=== PATIENT | male | born 1930 | race Caucasian/White ===

== ENCOUNTER 2019-10-29 11:17 | Inpatient (IN) ==
--- NOTE | 2019-10-29 12:13 | Emergency Department Note ---
History of Present Illness General Chief Complaint: Neuro Symptoms/Deficit Stated Complaint: SPEECH POOR,CONFUSION Time Seen by Provider: 10/29/19 11:48 Source: patient and family Mode of arrival: ambulatory Limitations: no limitations History of Present Illness HPI Narrative: This is an 89-year-old male who presents to the ED with a chief complaint of having difficulty finding words. The patient was last known well at 6 PM yesterday. He has history of a CVA in 2010. The daughter reports that the son-in-law went to bathe him and found that he was using the wrong words and having some difficulty and frustration with finding the right words to say. The patient did not have any focal neurologic deficits. At times he would stutter and the right words did not come out. The patient denies any pain. He has no other complaints at this time. Home Medications Home Medications Medication Instructions Recorded Confirmed Type aspirin 81 mg PO QAM 09/21/19 10/29/19 History atorvastatin 80 mg PO QAM 09/21/19 10/29/19 History chlorthalidone 12.5 mg PO QAM PRN 09/21/19 10/29/19 History irbesartan 75 mg PO QAM 09/21/19 10/29/19 History isosorbide mononitrate 60 mg PO QAM 09/21/19 10/29/19 History magnesium 250 mg PO QAM 09/21/19 10/29/19 History metformin 500 mg PO UD 09/21/19 10/29/19 History metoprolol succinate [Toprol XL] 25 mg PO HS 09/21/19 10/29/19 History sitagliptin [Januvia] 100 mg PO QAM 09/21/19 10/29/19 History vit C,S-Ea-hwstw-lutein-zeaxan 1 tab PO BID 09/21/19 10/29/19 History [PreserVision AREDS-2] Allergies Allergy/AdvReac Type Severity Reaction Status Date / Time hydrochlorothiazide Allergy Redness of Unverified 10/29/19 11:56 Skin Past Med/Surg History Medical History No known problems Family History Other No known problems Social History Preferred Language: Congolese Feels Safe at Home: Yes Smoking Status: Never smoker Review of Systems A total of 10 systems reviewed and were otherwise negative Physical Exam Vital Signs: Vital Signs - 24 hr 10/29/19 11:25 10/29/19 11:37 10/29/19 11:40 Temperature 37.2 C Temperature Source Oral Pulse Rate 67 71 73 Pulse Rate from Sp O2 Sensor Respiratory Rate 20 19 17 Respiratory Effort / Characteristics Non-Labored Sponta neous Respiratory Patter n Regular Blood Pressure 166/67 H Blood Pressure Prema n 100 Pulse Oximetry 97 Oxygen Delivery Me thod Room Air Sepsis Recent Feve r Within 48 Hours No Sepsis New/Unexpla ined Change in Men lennox Status No Sepsis Action Take n by Nursing No Action Required 10/29/19 11:50 10/29/19 12:00 10/29/19 12:10 Temperature Temperature Source Pulse Rate 68 67 67 Pulse Rate from Sp O2 Sensor Respiratory Rate 19 17 20 Respiratory Effort / Characteristics Respiratory Patter n Blood Pressure Blood Pressure Prema n Pulse Oximetry Oxygen Delivery Me thod Sepsis Recent Feve r Within 48 Hours Sepsis New/Unexpla ined Change in Men lennox Status Sepsis Action Take n by Nursing 10/29/19 12:20 10/29/19 12:39 10/29/19 12:40 Temperature Temperature Source Pulse Rate 66 74 74 Pulse Rate from Sp O2 Sensor Respiratory Rate 20 18 16 Respiratory Effort / Characteristics Respiratory Patter n Blood Pressure Blood Pressure Prema n Pulse Oximetry Oxygen Delivery Me thod Sepsis Recent Feve r Within 48 Hours Sepsis New/Unexpla ined Change in Men lennox Status Sepsis Action Take n by Nursing 10/29/19 12:47 10/29/19 12:50 10/29/19 13:00 Temperature Temperature Source Pulse Rate 76 73 67 Pulse Rate from Sp O2 Sensor 75 73 67 Respiratory Rate 18 15 16 Respiratory Effort / Characteristics Respiratory Patter n Blood Pressure 191/85 H 175/64 H Blood Pressure Prema n 139 81 Pulse Oximetry 97 96 95 Oxygen Delivery Me thod Sepsis Recent Feve r Within 48 Hours Sepsis New/Unexpla ined Change in Men lennox Status Sepsis Action Take n by Nursing 10/29/19 13:01 10/29/19 13:10 10/29/19 13:20 Temperature Temperature Source Pulse Rate 67 62 67 Pulse Rate from Sp O2 Sensor 65 63 Respiratory Rate 13 14 28 H Respiratory Effort / Characteristics Respiratory Patter n Blood Pressure Blood Pressure Prema n Pulse Oximetry 96 97 Oxygen Delivery Me thod Sepsis Recent Feve r Within 48 Hours Sepsis New/Unexpla ined Change in Men lennox Status Sepsis Action Take n by Nursing 10/29/19 13:30 10/29/19 13:31 10/29/19 13:40 Temperature Temperature Source Pulse Rate 62 61 62 Pulse Rate from Sp O2 Sensor 63 61 61 Respiratory Rate 20 15 17 Respiratory Effort / Characteristics Respiratory Patter n Blood Pressure 178/78 H Blood Pressure Prema n 118 Pulse Oximetry 98 98 97 Oxygen Delivery Me thod Sepsis Recent Feve r Within 48 Hours Sepsis New/Unexpla ined Change in Men lennox Status Sepsis Action Take n by Nursing Physical Exam: VITAL SIGNS: were reviewed as above. GENERAL:Non-toxic in appearance. SKIN: Warm dry and pink. HEAD: Normocephalic and atraumatic. OROPHARYNX: Is clear and moist NECK: Supple without lymphadenopathy or meningismus. LUNGS: Are clear. HEART: Regular rate and rhythm. ABDOMEN: Soft and nontender. EXTREMITIES: Warm and well perfused. NEUROLOGICALLY: Awake alert and oriented without focal deficit. Cranial nerves 2-12 are intact. There is no pronator drift. Cerebellar testing is within normal limits. There is no nystagmus. There is no facial droop. Speech is clear but the patient does occasionally stutter and occasionally seems to use the wrong words in a sentence. MUSCULOSKELETAL: Good muscle tone. No evidence of trauma. Strength is symmetric. ALL NURSING NOTES WERE REVIEWED. Course Administered Medications Ioversol (Optiray 320 125ml) 120 ml IV ONCE PRN PRN Reason: Interaction Checking Stop: 11/02/19 12:29 Last Admin: 10/29/19 12:31 Dose: 120 ml Documented by: [id number] Medical Decision Making Differential Diagnosis Differential includes acute coronary syndrome, myocardial infarction, CVA, TIA, anemia, infection, pneumonia, UTI, pyelonephritis, poor nutrition, dehydration, electrolyte disturbance,hypoglycemia. Medical Records Attestation: I reviewed the patient's medical records. Home Medications Current Medication List: was personally reviewed by me Laboratory Data Attestation: I reviewed the patient's lab results. Result diagrams: 10/29/19 11:57 10/29/19 11:57 Lab Results 10/29/19 10/29/19 10/29/19 Range/Units 11:53 11:57 11:57 WBC 8.88 (4.8-10.8) K/uL RBC 4.89 (4.7-6.1) M/uL Hgb 14.3 (14.0-18.0) g/dL Hct 44.3 (42-52) % MCV 90.6 (80-100) fL MCH 29.2 (25-34) pg MCHC 32.3 (32-36) g/dL RDW Std Deviation 52.0 H (36.4-46.3) fL RDW Coeff of Jennifer 15.7 H (11.5-14.5) % Plt Count 119 L (130-400) K/uL MPV 13.0 H (7.4-10.4) fL Immature Gran % (Auto) 0.2 % Neut % (Auto) 78.3 % Lymph % (Auto) 10.9 % [place] % (Auto) 7.5 % Eos % (Auto) 2.9 % Baso % (Auto) 0.2 % Immature Gran # (Auto) 0.02 (0.00-0.02) K/uL Neut # (Auto) 6.94 H (1.4-6.5) K/uL Lymph # (Auto) 0.97 L (1.2-3.4) K/uL [place] # (Auto) 0.67 H (0.11-0.59) K/uL Eos # (Auto) 0.26 (0-0.5) K/uL Baso # (Auto) 0.02 (0-0.2) K/uL Platelet Estimate Decreased L (Normal) PT 11.2 (9.0-12.0) Seconds INR 1.1 (0.9-1.1) APTT 27.2 (21.0-31.0) Seconds PTT Ratio 1.0 Sodium (136-145) mmol/L Potassium (3.5-5.1) mmol/L Chloride (98-107) mmol/L Carbon Dioxide (21-32) mmol/L Anion Gap (3-11) BUN (7-18) mg/dl Creatinine (0.6-1.4) mg/dl Est Cr Clr Drug Dosing ml/min Est GFR ( Amer) Est GFR (Non-Af Amer) BUN/Creatinine Ratio (10-20) Glucose (70-99) mg/dl POC Glucose 266 H (70-99) mg/dl Calcium (8.5-10.1) mg/dl Magnesium (1.8-2.4) mg/dl Total Bilirubin (0.2-1) mg/dl AST (15-37) U/L ALT (12-78) U/L Alkaline Phosphatase (45-117) U/L Troponin I (0-0.045) ng/ml Total Protein (6.4-8.2) gm/dl Albumin (3.4-5.0) gm/dl Globulin (2.5-4.0) gm/dl Albumin/Globulin Ratio (0.9-2) /03/09 Range/Units 11:57 WBC (4.8-10.8) K/uL RBC (4.7-6.1) M/uL Hgb (14.0-18.0) g/dL Hct (42-52) % MCV (80-100) fL MCH (25-34) pg MCHC (32-36) g/dL RDW Std Deviation (36.4-46.3) fL RDW Coeff of Jennifer (11.5-14.5) % Plt Count (130-400) K/uL MPV (7.4-10.4) fL Immature Gran % (Auto) % Neut % (Auto) % Lymph % (Auto) % [place] % (Auto) % Eos % (Auto) % Baso % (Auto) % Immature Gran # (Auto) (0.00-0.02) K/uL Neut # (Auto) (1.4-6.5) K/uL Lymph # (Auto) (1.2-3.4) K/uL [place] # (Auto) (0.11-0.59) K/uL Eos # (Auto) (0-0.5) K/uL Baso # (Auto) (0-0.2) K/uL Platelet Estimate (Normal) PT (9.0-12.0) Seconds INR (0.9-1.1) APTT (21.0-31.0) Seconds PTT Ratio Sodium 137 (136-145) mmol/L Potassium 4.5 (3.5-5.1) mmol/L Chloride 102 (98-107) mmol/L Carbon Dioxide 28 (21-32) mmol/L Anion Gap 6.0 (3-11) BUN 26 H (7-18) mg/dl Creatinine 1.40 (0.6-1.4) mg/dl Est Cr Clr Drug Dosing 33.4 ml/min Est GFR ( Amer) 51.3 Est GFR (Non-Af Amer) 44.2 BUN/Creatinine Ratio 18.2 (10-20) Glucose 275 H (70-99) mg/dl POC Glucose (70-99) mg/dl Calcium 9.0 (8.5-10.1) mg/dl Magnesium 1.9 (1.8-2.4) mg/dl Total Bilirubin 0.4 (0.2-1) mg/dl AST 19 (15-37) U/L ALT 29 (12-78) U/L Alkaline Phosphatase 121 H (45-117) U/L Troponin I < 0.015 (0-0.045) ng/ml Total Protein 6.9 (6.4-8.2) gm/dl Albumin 3.2 L (3.4-5.0) gm/dl Globulin 3.7 (2.5-4.0) gm/dl Albumin/Globulin Ratio 0.9 (0.9-2) Imaging Data Radiologist's Impression: CT scan angiogram of the head iMPRESSION: 1. Severe focal narrowing within the distal bilateral vertebral arteries as described above. 2. Moderate calcified plaque within the bilateral carotid siphons resulting in mild diffuse narrowing. 3. Attenuated distal right INSURANCE VERIFIER corresponding to the old right INSURANCE VERIFIER territory infarct. 4. No areas of acute arterial occlusion. CT scan angiogram of the neck iMPRESSION: 1. 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 2. 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 3. Atherosclerotic vascular disease as above with additional areas of low to intermediate grade luminal narrowing. 4. 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 IMPRESSION: 1. No acute intracranial abnormality. 2. Remote right INSURANCE VERIFIER territorial infarct. Prescription Drug Monitoring [place] Drug Monitoring Program reviewed and no issues identified Blood Pressure Blood Pressure Findings: Elevated blood pressure Blood Pressure Disposition: Referred to patients primary care provider MDM Narrative This is an 89-year-old male who presents to the ED with a chief complaint of having difficulty finding words. The patient was last known well at 6 PM yesterday. He has history of a CVA in 2010. The daughter reports that the son-in-law went to bathe him and found that he was using the wrong words and having some difficulty and frustration with finding the right words to say. The patient did not have any focal neurologic deficits. At times he would stutter and the right words did not come out. The patient denies any pain. He has no other complaints at this time. The patient's vital signs reveal hypertension. His neurologic exam reveals no motor focal deficits. He does have occasional moments where he states the wrong word in a sentence or several words in a sentence causing the symptoms do not make much sense. Stroke alert was not called because his last known well was at 6 PM yesterday. It is noon. The CT scan of the brain reveals a remote right INSURANCE VERIFIER territory infarct. EKG showed a no rmal sinus rhythm at a rate of 72 with a right bundle branch block. CBC and chemistry panel was unremarkable. Glucose is 275. Troponin was negative. CT angiogram of the head neck was performed. Details are listed above. The patient takes baby aspirin daily. I will start the patient on Plavix in addition to the aspirin. I spoke with the hospitalist, who will see the patient for further inpatient evaluation and care. Impression & Plan Acute CVA (cerebrovascular accident) Discharge Plan Visit Data Chief Complaint: Neuro Symptoms/Deficit Stated Complaint: SPEECH POOR,CONFUSION ED Provider: Fletcher Santos Discharge Problem: Acute CVA (cerebrovascular accident) Patient Disposition: Being Evaluated by Hospitalist Condition: Good Forms Stand Alone Forms: My [facility], Virtual Emergency Department, Important Visit Information Prescriptions Prescriptions: No Action atorvastatin 80 mg Tablet 80 mg PO QAM RF: 0 chlorthalidone 25 mg Tablet 12.5 mg PO QAM PRN (Reason: swelling) RF: 0 aspirin 81 mg Tablet,Delayed Release (Dr/Ec) 81 mg PO QAM RF: 0 isosorbide mononitrate 60 mg Tablet Extended Release 24 Hr 60 mg PO QAM RF: 0 magnesium 250 mg Tablet 250 mg PO QAM RF: 0 metoprolol succinate [Toprol XL] 25 mg Tablet Extended Release 24 Hr 25 mg PO HS RF: 0 irbesartan 150 mg Tablet 75 mg PO QAM RF: 0 metformin 500 mg Tablet Extended Release 24 Hr 500 mg PO UD RF: 0 Januvia 100 mg Tablet 100 mg PO QAM RF: 0 PreserVision AREDS-2 [id number] aa-lypc-no-mg Capsule 1 tab PO BID RF: 0 Referrals Referrals: Alfa Carrillo MD [Primary Care Provider] -
[2019-10-29 12:20] LABS: INR 1.1 (0.9-1.1); Partial Thromboplastin Time 27.2 Seconds (21.0-31.0); Prothrombin Time 11.2 Seconds (9.0-12.0)
[2019-10-29 12:29] LABS: Alanine Aminotransferase 29 U/L (12-78); Albumin Level 3.2 gm/dl (3.4-5.0); Aspartate Aminotransferase 19 U/L (15-37); BUN Creatinine Ratio 18.2 (10-20); Blood Urea Nitrogen 26 mg/dl (7-18); Carbon Dioxide 28 mmol/L (21-32); Chloride 102 mmol/L (98-107); Creatinine Clr Calc Pharmacy 33.4 ml/min; Est GFR (African American) 51.3; Est GFR (Non-African American) 44.2; Glucose 275 mg/dl (70-99); Magnesium 1.9 mg/dl (1.8-2.4); Potassium 4.5 mmol/L (3.5-5.1); Sodium 137 mmol/L (136-145)
[2019-10-29] MEDS ORDERED: OPTIRAY 320 125ml IV PRN (12:30)
[2019-10-29 12:32] LABS: Hematocrit (blood only) 44.3 % (42-52); Hemoglobin 14.3 g/dL (14.0-18.0); Mean Corpuscular Hemoglobin 29.2 pg (25-34); Mean Corpuscular Hgb Conc 32.3 g/dL (32-36); Mean Corpuscular Volume 90.6 fL (80-100); RDW Coefficient of Variation 15.7 % (11.5-14.5); Red Blood Count 4.89 M/uL (4.7-6.1); White Blood Count 8.88 K/uL (4.8-10.8)
[2019-10-29 12:34] LABS: Albumin Globulin Ratio 0.9 (0.9-2); Alkaline Phosphatase 121 U/L (45-117); Bilirubin,Total 0.4 mg/dl (0.2-1); Globulin 3.7 gm/dl (2.5-4.0); Total Protein 6.9 gm/dl (6.4-8.2); Troponin I < 0.015 ng/ml (0-0.045)
--- NOTE | 2019-10-29 12:42 | CT Scan Report ---
CT head/brain wo con CLINICAL HISTORY: 89 years-old Male with Stroke evaluation . Acutely altered mental status with stro kelike symptoms TECHNIQUE: Multiple axial CT images of the head were obtained without contrast. A dose lowering tech nique was utilized adhering to the principles of ALARA. CT DOSE: 638.56 mGycm COMPARISON: Head CT 09/21/2019. FINDINGS: No acute intracranial hemorrhage, midline shift, intracranial mass, hydrocephalus, territorial ischem ia or abnormal extra-axial collection. Age-related involutional changes with ex vacuo ventriculomegal y. Patchy white matter hypodensities suggest chronic microvascular ischemic disease. Encephalomalacia from remote TRANSFER STATION ATTENDANT territorial infarct. Cerebral vascular calcifications. The calvarium is intact. Prior bilateral lens replacement. The paranasal sinuses, mastoid air cells, and middle ear cavities are clear. IMPRESSION: 1. No acute intracranial abnormality. 2. Remote right TRANSFER STATION ATTENDANT territorial infarct. ACT 112: Negative or not required by law. The above report was generated using voice recognition software. It may contain grammatical, syntax o r spelling errors. Electronically signed by: Casey Banuelos M.D. 10/29/2019 12:40 PM
--- NOTE | 2019-10-29 12:49 | CT Scan Report ---
HEAD CTA HISTORY: Altered mental status. Stroke evaluation TECHNIQUE: Multiaxial CT images of the head were performed following the intravenous administration o f contrast to evaluate the major cerebral vessels. Maximum intensity projection images were also obta ined. A dose lowering technique was utilized adhering to the principles of ALARA. COMPARISON: Head CT 09/21/2019. FINDINGS: Severe focal narrowing within the distal left vertebral artery best in image 42. This demon strates up to 75% narrowing. There is also severe focal narrowing at the distal right vertebral arter y of 75% near the confluence. Moderate calcified plaque seen within the bilateral carotid siphons. Th is results in mild diffuse narrowing of the bilateral carotid siphons. The bilateral ACAs, MCAs, and left SUPERINTENDENT SEED MILL show no significant stenosis, occlusion, or aneurysm. Attenuated distal right SUPERINTENDENT SEED MILL correspond ing to the old right SUPERINTENDENT SEED MILL territory infarct. The major dural venous sinuses appear patent. IMPRESSION: 1. Severe focal narrowing within the distal bilateral vertebral arteries as described above. 2. Moderate calcified plaque within the bilateral carotid siphons resulting in mild diffuse narrowing . 3. Attenuated distal right SUPERINTENDENT SEED MILL corresponding to the old right SUPERINTENDENT SEED MILL territory infarct. 4. No areas of acute arterial occlusion. ACT 112: Negative or not required by law. Electronically signed by: Jeramy Curran M.D. 10/29/2019 12:48 PM
[2019-10-29 12:53] LABS: Platelet Count 119 K/uL (130-400)
[2019-10-29 12:54] LABS: Basophils # (auto) 0.02 K/uL (0-0.2); Basophils % (auto) 0.2 %; Eosinophils # (auto) 0.26 K/uL (0-0.5); Eosinophils % (auto) 2.9 %; Immature Granulocytes # (auto) 0.02 K/uL (0.00-0.02); Immature Granulocytes % (auto) 0.2 %; Lymphocytes # (auto) 0.97 K/uL (1.2-3.4); Lymphocytes % (auto) 10.9 %; Monocytes # (auto) 0.67 K/uL (0.11-0.59); Monocytes % (auto) 7.5 %; Neutrophils # (auto) 6.94 K/uL (1.4-6.5); Neutrophils % (auto) 78.3 %; Platelet Estimate Decreased (Normal)
--- NOTE | 2019-10-29 12:57 | CT Scan Report ---
CT angio neck with con CLINICAL HISTORY: 89 years-old Male with Stroke evaluation. Acute strokelike symptoms with letharg y COMPARISON STUDY: CT and CTA head of same day TECHNIQUE: Following the IV administration of 120 of Optiray 320, CT angiogram of the neck was perfor med from the aortic arch to the skull base. Images are reviewed in the axial, sagittal, and coronal p lanes. 3-D MIPS images are created and assessed. IV contrast was administered without complication. A ll measurements were calculated based on NASCET criteria. A dose lowering technique was utilized adh ering to the principles of ALARA. FINDINGS: At least moderate mixed plaque the thoracic aortic arch and proximal great vessels. The innominate ar josé and imaged subclavian arteries appear patent. There is mild luminal narrowing of the proximal ri ght subclavian artery. Moderate mixed plaque of the bilateral common carotid arteries without high-gr aniyah stenosis. Severe mixed plaque of the bilateral carotid bulbs. This includes an ulcerative plaque of the right carotid bulb. There is 70% luminal narrowing at the origin of the right ICA on image 272 of series 4. There is less than 50% stenosis of the left carotid bulb and proximal left ICA. Extensi ve calcified plaque of the bilateral cavernous segments appear to result in at least 50% luminal narr owing. Codominant vertebral arteries. Calcified plaque at the origin of the right vertebral artery results i n approximately 50% luminal narrowing. There is caliber change with luminal narrowing of the distal V 4 segment right vertebral artery distal to the PICA takeoff. Multifocal plaque formation with kinking of the proximal left vertebral artery results in approximately 50% luminal narrowing on image 1 7 se ke 4. High-grade stenosis of the V4 segment left vertebral artery, image 380 series 4 secondary to mixed plaque. Additional multifocal areas of moderate luminal narrowing of the distal vertebral arter y. The basilar artery appears patent. No pneumothorax. Bronchial wall thickening suggestive of bronchitis. Unremarkable appearance of the s oft tissues. Remote right TRAIN STARTER territorial infarct. Prior median sternotomy. Degenerative changes of t he spine. IMPRESSION: 1. Severe mixed plaque of the bilateral carotid bulbs results in 70% luminal narrowing of the proxima l right ICA and less than 50% stenosis on the left. 2. 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 3. Atherosclerotic vascular disease as above with additional areas of low to intermediate grade lumin al narrowing. 4. 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 ACT 112: Negative or not required by law. The above report was generated using voice recognition software. It may contain grammatical, syntax o r spelling errors. Electronically signed by: Casey Banuelos M.D. 10/29/2019 12:56 PM
[2019-10-29] MEDS ORDERED: CLOPIDOGREL BISULFATE 300 MG TAB PO STA (14:24)
--- NOTE | 2019-10-29 16:13 | History & Physical Report ---
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 territorial infarct CTA head/neck - severe atherosclerotic disease, no areas of acute arterial narrowing Complete stroke workup with: MRI brain w/o contrast TTE Lipid panel, HbA1C in AM Current symptoms while taking ASA therefore clopidogrel added to medication regimen Consult neurology PT/OT evals (2) Type 2 diabetes mellitus: Hold metformin and sitagliptin HbA1C in AM Insulin correction factor only, add basal dosing iff necessary depending on glucose measurements BSG ACHS (3) Coronary artery disease: Suspected CABG given central sternotomy scar HIM requested outpatient notes and problem list for better PMHx Continue ASA, metoprolol, atorvastatin (4) History 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 Last known normal 6pm yesterday. The patient was unable to provide a history on his current expressive dysphasia and word finding difficulty and I was unable to reach his daughter by phone at the time of admission. As per ER notes his son-in-law went to bathe him today and noticed he was using the wrong words and getting frustrated finding the right words to say. When seen the patient was still having the occasional word finding difficulty. He was able to tell me the year but wrong month. Able to tell me he was in [facility]. Does not appear to be confused but hesitates to find the right words o ften during our conversation. He does note a history of a stroke approximately 9-10 years ago with residual difficulty with his left leg weakness. He denies any cough, shortness of breath, fever, loss of taste or smell. No known COVID-19 exposure. Allergies Allergy/AdvReac Type Severity Reaction Status Date / Time hydrochlorothiazide Allergy Redness of Unverified 10/29/19 11:56 Skin Home Medications Home Medications Medication Instructions Recorded Confirmed Type aspirin 81 mg PO QAM 09/21/19 10/29/19 History atorvastatin 80 mg PO QAM 09/21/19 10/29/19 History chlorthalidone 12.5 mg PO QAM PRN 09/21/19 10/29/19 History irbesartan 75 mg PO QAM 09/21/19 10/29/19 History isosorbide mononitrate 60 mg PO QAM 09/21/19 10/29/19 History magnesium 250 mg PO QAM 09/21/19 10/29/19 History metformin 500 mg PO UD 09/21/19 10/29/19 History metoprolol succinate [Toprol XL] 25 mg PO HS 09/21/19 10/29/19 History sitagliptin [Januvia] 100 mg PO QAM 09/21/19 10/29/19 History vit C,Z-Kk-crtkg-lutein-zeaxan 1 tab PO BID 09/21/19 10/29/19 History [PreserVision AREDS-2] Past Med/Surg History Medical History (Updated 10/30/19 @ 07:49 by Alfa Santillan MD) Bifascicular block Coronary artery disease History of CVA (cerebrovascular accident) Type 2 diabetes mellitus Family History Other No known problems Social History Preferred Language: Citizen Of [place] Communication Ability: Effective Documentation Lead Required: No Beliefs That Will Affect Care: None Current Living Situation: Family Current Living Situation Comment: Daughter. Other Information That Helps Us Care for You: No Feels Safe at Home: Yes Safety Concerns: Feels Safe At This Time Smoking Status: Never smoker Hx Alcohol Use: No Hx Substance Use: No Review of Systems Review of Systems: All systems reviewed & are unremarkable except as noted in HPI & below Physical Exam Constitutional: well developed and well nourished; no acute distress Eyes: PERRL, conjunctivae normal, anicteric sclerae ENMT: external ear and nose normal, oropharynx normal Neck: trachea midline, no thyromegaly Respiratory: normal respiratory effort, lungs clear to auscultation Cardiovascular: Rate/Rhythm: regular rate and regular rhythm Heart Sounds: + murmur (systolic loudest in LUSB) Vessels: no JVD Extremities: normal capillary refill; no calf tenderness and no pedal edema Gastrointestinal (Abdomen): normal bowel sounds, soft, nontender, no hepatosplenomegaly Musculoskeletal: no cyanosis or clubbing, extremities motor strength 5/5 Skin: no rashes, warm and dry Neurologic: moves all extremities, + focal motor deficit (subjective LLE weakness but objectively not apparent (gait not assessed)) and awake; not confused Speech / Cognition: + expressive aphasia and + abnormal cognition (Orientated to year but not month/day, unable to recall events today); no receptive aphasia Motor/Sensory: no tremor, no pronator drift and no sensory deficit Coordination: normal dnlnmz-js-vohq test and normal tdpz-yb-hzxz test Psychiatric: Orientation: alert, oriented to person and oriented to place; + not oriented to time (orientated to year only) Lymphatic: no cervical or axillary lymphadenopathy Results & Data Results & Data ([facility]) Vital Signs (Past 12 Hours) Vital Signs Temp Pulse Resp BP Pulse Ox 10/29/19 15:30 65 23 10/29/19 15:20 58 L 17 10/29/19 15:10 57 L 18 10/29/19 15:02 57 L 19 183/75 H 10/29/19 15:00 63 19 10/29/19 14:50 72 20 10/29/19 14:40 59 L 18 95 10/29/19 14:30 60 18 164/68 H 96 10/29/19 14:20 58 L 13 96 10/29/19 14:10 60 14 97 10/29/19 14:00 60 14 157/65 H 97 10/29/19 13:50 58 L 16 97 10/29/19 13:40 62 17 97 10/29/19 13:31 61 15 98 10/29/19 13:30 62 20 178/78 H 98 10/29/19 13:20 67 28 H 10/29/19 13:10 62 14 97 10/29/19 13:01 67 13 96 10/29/19 13:00 67 16 175/64 H 95 10/29/19 12:50 73 15 96 10/29/19 12:47 76 18 191/85 H 97 10/29/19 12:40 74 16 10/29/19 12:39 74 18 10/29/19 12:20 66 20 10/29/19 12:10 67 20 10/29/19 12:00 67 17 10/29/19 11:50 68 19 10/29/19 11:40 73 17 10/29/19 11:37 71 19 10/29/19 11:25 37.2 C 67 20 166/[address] head/brain wo con IMPRESSION: 1. No acute intracranial abnormality. 2. Remote right INSTRUMENT ASSEMBLER territorial infarct. HEAD CTA IMPRESSION: 1. Severe focal narrowing within the distal bilateral vertebral arteries as described above. 2. Moderate calcified plaque within the bilateral carotid siphons resulting in mild diffuse narrowing. 3. Attenuated distal right INSTRUMENT ASSEMBLER corresponding to the old right INSTRUMENT ASSEMBLER territory infarct. 4. No areas of acute arterial occlusion. CT angio neck with con IMPRESSION: 1. 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 2. 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 3. Atherosclerotic vascular disease as above with additional areas of low to intermediate grade luminal narrowing. 4. Encephalomalacia from remote right INSTRUMENT ASSEMBLER territorial infarct. ECG Indication: other (suspected CVA) Rate (beats per minute): 72 Rhythm: normal sinus Findings: + LAFB and + RBBB Comparison ECG Date: from (09/21/2019) Change: no significant change Code Status & VTE Plan Code Status DNR/DNI as discussed with the patient VTE Prophylaxis Plan VTE Prophylaxis will be ordered: Yes PG Care Time/CCT Total # of Minutes Spent Total Time Spent with Patient: Total time spent is greater than 50% in coordination of care (as documented) at patient's floor/unit and/or counseling patient: Coding Level of Care Code 34066 OBS Care - Level 3 Diagnoses Stroke-like symptoms R29.90 Type 2 diabetes mellitus E11.9 Coronary artery disease I25.10 History of CVA (cerebrovascular accident) Z86.73 Hypertension I10 Bifascicular block I45.2 DVT prophylaxis Z29.9
[2019-10-29] MEDS ORDERED: PHARMACIST DISCHARGE MED REC CONSULT PRN (20:09)
[2019-10-29] MEDS ORDERED: DEXTROSE 50% 50 ML SYRINGE IV PRN (20:09)
[2019-10-29] MEDS ORDERED: GLUCAGON FOR INJ 1 MG VIAL SQ PRN (20:09)
[2019-10-29] MEDS ORDERED: CARBOHYDRATES FOR HYPOGLYCEMIA PO PRN (20:09)
[2019-10-29] MEDS ORDERED: GLUCOSE 40% GEL 15 GM TUBE PO PRN (20:09)
[2019-10-29] MEDS ORDERED: GLUCOSE 10 TABS/TUBE PO PRN (20:09)
[2019-10-29] MEDS: INSULIN ASPART 100 UNITS/ML 3 ML PEN SC SCH (20:50)
[2019-10-29] MEDS: METOPROLOL SUCC 25MG EXT REL TAB PO SCH (21:35)
[2019-10-30 01:18] LABS: Appearance Urine Clear (Clear); Bacteria Urine Automated Negative (Negative); Bilirubin Urine Negative (Negative); Blood Urine Negative (Negative); Cast Urine Automated 0 /lpf (0-5); Color Urine Yellow; Glucose Urine UA Negative (Negative); Ketones Urine Negative (Negative); Leukocyte Esterase Urine Negative (Negative); Nitrite Urine Negative (Negative); RBC Urine Automated 0-4 /hpf (0-4); Specific Gravity Urine 1.039 (1.000-1.030); Urobilinogen Urine Negative (Negative); pH Urine 8.5 (4.5-7.5)
[2019-10-30 01:24] LABS: Protein Urine Negative (Negative); Sulfosalicylic Acid Urine Negative (Negative)
--- NOTE | 2019-10-30 06:00 | Electrocardiogram Report ---
Test Reason : Blood Pressure : / mmHG Vent. Rate : 072 BPM Atrial Rate : 072 BPM P-R Int : 166 ms QRS Dur : 130 ms QT Int : 406 ms P-R-T Axes : 074 -62 045 degrees QTc Int : 444 ms Normal sinus rhythm Right bundle branch block Left anterior fascicular block Bifascicular block Inferior infarct (cited on or before 21-SEP-2019) Abnormal ECG When compared with ECG of 21-SEP-2019 09:49, No significant change was found Confirmed by Luis Ruiz ([id number]) on 10/30/2019 6:00:27 AM Referred By: Confirmed By:Luis Ruiz
--- NOTE | 2019-10-30 07:26 | Magnetic Resonance Report ---
MR brain wo con HISTORY: 89 years-old Male expressive dysphasia dysphasia with acute strokelike symptoms COMPARISON: Head CT, CTA head neck of same day TECHNIQUE: Multiplanar multisequence MRI of the brain was obtained without the use of IV contrast. FINDINGS: There is an ill-defined area of slightly restricted diffusion involving the periventricular left temp oral lobe measuring 7 mm and image 10 series 4 with slightly decreased signal on the ADC map. There a re two tiny foci of restricted diffusion measuring up to 4 mm within the right temporal and temporal parietal distributions (please see images 11 and 15 of series 4). No acute territorial infarct. Age-r elated involutional changes with ex vacuo tracheomegaly. Encephalomalacia and gliosis from remote rig ht PICA territorial infarct. Study is mildly motion degraded. Extensive and confluent T2/FLAIR signal abnormalities throughout the white matter are suggestive of advanced chronic microvascular ischemic disease. No acute intracranial hemorrhage, midline shift, abnormal extra-axial collections, hydroceph alus or intracranial mass. Major vascular flow voids appear patent. Mild mucosal thickening of the et hmoid air cells. Prior bilateral lens replacement. The skull and soft tissues are unremarkable. IMPRESSION: 1. Two tiny subcentimeter foci of restricted diffusion within the right temporal and temporoparietal distributions with an additional subcentimeter focus of restricted diffusion within the left temporal lobe are suggestive of acute or subacute infarcts, likely from thromboembolic source. 2. No territorial infarct, midline shift or intracranial hemorrhage. 3. Age-related involutional changes with ex vacuo ventriculomegaly and extensive T2/FLAIR signal abno rmalities suggestive of chronic microvascular ischemic disease. ACT 112: Negative or not required by law. The above report was generated using voice recognition software. It may contain grammatical, syntax o r spelling errors. Electronically signed by: Casey Banuelos M.D. 10/30/2019 7:24 AM
[2019-10-30] MEDS ORDERED: PERFLUTREN LIPID MICROSPHERE (DEFINITY) IV ONE (07:32)
[2019-10-30] MEDS: ISOSORBIDE MONO EXTENDED REL 60 MG TABCR PO SCH (08:06)
[2019-10-30] MEDS: IRBESARTAN 75 MG TAB PO SCH (08:06)
[2019-10-30] MEDS: MAGNESIUM OXIDE 400 MG TAB PO SCH (08:06)
[2019-10-30] MEDS: CLOPIDOGREL BISULFATE 75 MG TAB PO SCH (08:07)
[2019-10-30] MEDS: ATORVASTATIN 40 MG TAB PO SCH (08:07)
[2019-10-30] MEDS: HEPARIN SOD 5,000 UNIT/0.5 ML VIAL SQ SCH ×2 (08:08→20:42)
[2019-10-30] MEDS: ASPIRIN 81 MG ECTAB PO SCH (08:08)
[2019-10-30] MEDS: CEROVITE ADV FORMULA TAB PO SCH (08:08)
[2019-10-30 08:36] LABS: Hematocrit (blood only) 45.3 % (42-52); Hemoglobin 14.7 g/dL (14.0-18.0); Mean Corpuscular Hemoglobin 29.3 pg (25-34); Mean Corpuscular Hgb Conc 32.5 g/dL (32-36); Mean Corpuscular Volume 90.2 fL (80-100); Mean Platelet Volume 12.7 fL (7.4-10.4); Platelet Count 125 K/uL (130-400); RDW Coefficient of Variation 15.6 % (11.5-14.5); RDW Standard Deviation 51.6 fL (36.4-46.3); Red Blood Count 5.02 M/uL (4.7-6.1); White Blood Count 8.11 K/uL (4.8-10.8)
[2019-10-30 08:39] LABS: Estimated Average Glucose 160 mg/dl; Hemoglobin A1C 7.2 % (4.5-5.6)
[2019-10-30] MEDS: INSULIN ASPART 100 UNITS/ML 3 ML PEN SC SCH ×4 (08:40→20:46)
[2019-10-30 08:52] LABS: Basophils # (auto) 0.02 K/uL (0-0.2); Basophils % (auto) 0.2 %; Eosinophils # (auto) 0.46 K/uL (0-0.5); Eosinophils % (auto) 5.7 %; Immature Granulocytes # (auto) 0.01 K/uL (0.00-0.02); Immature Granulocytes % (auto) 0.1 %; Lymphocytes # (auto) 1.28 K/uL (1.2-3.4); Lymphocytes % (auto) 15.8 %; Monocytes # (auto) 0.91 K/uL (0.11-0.59); Monocytes % (auto) 11.2 %; Neutrophils # (auto) 5.43 K/uL (1.4-6.5)
[2019-10-30 08:58] LABS: BUN Creatinine Ratio 18.1 (10-20); Calcium 9.7 mg/dl (8.5-10.1); Creatinine Clr Calc Pharmacy 36.6 ml/min; Est GFR (African American) 57.1; Est GFR (Non-African American) 49.3; Potassium 4.2 mmol/L (3.5-5.1)
--- NOTE | 2019-10-30 08:59 | Neurology Consultation ---
Date of Consultation October 30, 2019 Assessment & Plan (1) Acute ischemic multifocal multiple vascular territories stroke: Acute multifocal ischemic stroke potentially consistent with a cardioembolic source. The 70% stenosis of the proximal right ICA is of undetermined significance as this patient also has evidence of an acute ischemic infarct within the left cerebral hemisphere. The high-grade stenosis within the left vertebral artery would not be related to the acute ischemic infarct either. Hypertension and diabetes mellitus are notable stroke risk factors for this patient. Although cardioembolism has been suggested, this patient does not have a history of atrial fibrillation. I agree with the addition of Plavix to this patient's medication regimen. Would continue with both Plavix 75 mg/day and aspirin 81 mg/day for the next 3 weeks, after which, discontinued daily low-dose aspirin in favor of Plavix monotherapy. Continue with atorvastatin 80 mg/day. Follow-up with the results of echocardiogram. Consider 30-day cardiac monitoring. Continue with medical management of hypertension and diabetes mellitus. Avoid aggressive treatment of blood pressure acutely during hospitalization, systolic blood pressure goal 140 to 160 mmHg. PT/OT/speech therapy. History of Present Illness Reason for Consultation: Expressive aphasia Requesting Physician: Alfa Santillan MD Attending Physician: Tavares Zhu DO History of Present Illness The patient is an 89-year-old male with a chief complaint of word finding difficulty that was noted yesterday morning by family members. He continues to exhibit some speech difficulty during his assessment in the emergency department which was described as a stuttering speech quality with occasional word substitutions. His speech difficulty has resolved this morning. He denies experiencing any associated headache, new vision loss, or new weakness. 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 This morning, this patient speech does seem appropriate without evidence of obvious expressive aphasia. He does have some chronic spastic weakness affecting primarily the left lower limb. Allergies Allergy/AdvReac Type Severity Reaction Status Date / Time hydrochlorothiazide Allergy Redness of Unverified 10/29/19 11:56 Skin Home Medications Home Medications Medication Instructions Recorded Confirmed Type aspirin 81 mg PO QAM 09/21/19 10/29/19 History atorvastatin 80 mg PO QAM 09/21/19 10/29/19 History chlorthalidone 12.5 mg PO QAM PRN 09/21/19 10/29/19 History irbesartan 75 mg PO QAM 09/21/19 10/29/19 History isosorbide mononitrate 60 mg PO QAM 09/21/19 10/29/19 History magnesium 250 mg PO QAM 09/21/19 10/29/19 History metformin 500 mg PO UD 09/21/19 10/29/19 History metoprolol succinate [Toprol XL] 25 mg PO HS 09/21/19 10/29/19 History sitagliptin [Januvia] 100 mg PO QAM 09/21/19 10/29/19 History vit C,S-Hn-eujkl-lutein-zeaxan 1 tab PO BID 09/21/19 10/29/19 History [PreserVision AREDS-2] Patient History Medical History Bifascicular block Coronary artery disease History of CVA (cerebrovascular accident) Type 2 diabetes mellitus Family History Other No known problems Social History Preferred Language: Khmer Communication Ability: Effective 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 Other Information That Helps Us Care for You: No Feels Safe at Home: Yes Safety Concerns: Feels Safe At This Time Smoking Status: Never smoker Hx Alcohol Use: No Hx Substance Use: No Review of Systems Constitutional: no fever and no chills Eyes: + problem reported Ear, Nose, Mouth, Throat: no hearing loss Respiratory: no cough and no dyspnea Cardiovascular: no chest pain and no palpitations Gastrointestinal: no nausea and no vomiting Genitourinary: no urinary incontinence Musculoskeletal: no neck pain and no myalgia Integumentary: no rash and no lesions Neurologic: as per Subjective / HPI; no headache(s) Psychiatric: no depression and no anxiety Hematologic / Lymphatic: no easy bleeding and no easy bruising Exam (Neuro) Constitutional: well developed and well nourished; no acute distress Eyes: normal visual castillo by confrontation, normal accommodation and EOM intact bilaterally; + no PERRL (Pupils are poorly reactive and have a postsurgical appearance.) Unable to perform direct ophthalmoscopic examination due to poor patient cooperation, unable to keep eyes open/forced eyelid closure due to light sensitivity. Cardiovascular: Vessels: + carotid bruit (Bilateral carotid bruits appreciated.) and normal carotid upstroke Neurologic: Oriented to:: Person, Place and Time Memory: Short Term Intact and Remote Intact Attention: Span Intact and Concentration Intact Language: Naming Objects and Repeating Phrases Speech Fluency: negative Dysarthria Speech Aphasia: negative Aphasia Fund of Knowledge: Current Events, Past History and Vocabulary Cranial Nerves: Normal II (Visual castillo full to confrontation, visual acuity normal), III, IV, (Pupils equal round reactive to light and accommodation, eye movements normal), V (Facial sensation intact), VII (There is no facial droop or weakness), VIII (Hearing intact), IX, X (Palate elevates to midline), XI (Shoulder shrug intact) and XII (Tongue protrudes to midline) Motor Strength: Normal Lower Extremities and Normal Upper Extremities; negative Pronator Drift Motor Tone: Normal Upper Extremities; negative Normal Lower Extremities Hypertonicity: Legs Laterality: Left Muscle Bulk/Involuntary Movements: No Involuntary Movements; negative Muscle Atrophy Sensation: Light Touch Intact, Pain/Temperature Intact, Vibration Intact and Proprioception Intact Coordination: Normal and Heel-Machado Abnormal Laterality: Left; negative Limited Balance, Dysdiadochokinesia and Finger-Nose Abnormal Deep Tendon Reflexes: Rt Triceps: 2+, Lt Triceps: 2+, Rt Biceps: 2+, Lt Biceps: 2+, Rt Brachioradialis: 2+, Lt Brachioradialis: 2+, Rt Patellar: 2+, Lt Patellar: 2+, Rt Ankle: 1+ and Lt Ankle: 1+ Special Tests: Babinski Present (Left plantar response equivocal, right plantar response downgoing) Details: Gait could not be tested in the context of patient's current medical/neurological condition due to safety concerns. Results & Data ([facility]) Vital Signs (Past 12 Hours) Vital Signs Temp Pulse Pulse Resp BP Pulse Ox 10/30/19 07:56 36.9 C 58 L 20 186/86 H 98 10/30/19 03:10 37 C 85 16 191/84 H 92 10/29/19 23:52 36.6 C 91 H 16 196/74 H 97 10/29/19 21:02 63 Laboratory Results WBC 8.11, hemoglobin 14.7, hematocrit 45.3, platelet count 125 sodium 139, potassium 4.2, BUN 23, creatinine 1.28, glucose 146, hemoglobin A1c 7.2, triglycerides 134, cholesterol 143, LDL 71, VLDL 27, HDL 45 Diagnostic Findings Brain MRI reveals 2 tiny subcentimeter acute infarcts within the right temporal and temporoparietal distributions with an additional small acute ischemic infarct within the left temporal lobe. There is chronic encephalomalacia and gliosis due to a remote right posterior cerebral artery territory infarct. A CT angiogram of the neck reveals a 70% stenosis at the proximal right ICA and a less than 50% stenosis of the left ICA. There is a high-grade stenosis at the left V4 segment. A CT angiogram of the head reveals severe focal narrowing within the distal bilateral vertebral arteries and moderate plaque within the bilateral carotid siphons. I reviewed the images as well as the radiologist's interpretation of these tests. An electrocardiogram reveals a normal sinus rhythm. PG Care Time/CCT Total # of Minutes Spent Total Time Spent with Patient: Total time spent is greater than 50% in coordination of care (as documented) at patient's floor/unit and/or counseling patient: Coding Level of Care Code 30453 Initial Inpt Care Lvl 3 Diagnoses Acute ischemic multifocal multiple vascular territories stroke I63.89
--- NOTE | 2019-10-30 16:15 | Hospitalist Progress Note ---
Date of Service October 30, 2019 Assessment & Plan (1) Acute ischemic multifocal multiple vascular territories stroke: two small strokes in right parietal and one small stroke in left parietal would suggest a cardioembolic source, however, no known h/o atrial fibrillation will treat with Plavix and aspirin x 3 weeks then just Plavix continue statin therapy, LDL well controlled HbA1c is 7.2% which overall is not bad in someone his age, but could be better to decrease risk of future stroke he will increase Metformin to 1000mg BID and continue Januvia would hesitate to added insulin, would not want to cause hypoglycemia BP is elevated today, allow for permissive HTN, goal for BP is 140-160 while here PT/OT consulted, speech consulted daughter wants him to go to SNF rehab (2) Type 2 diabetes mellitus: Hold metformin and sitagliptin while admitted HbA1C = 7/2% Insulin correction factor only BSG ACHS monitor for hypoglycemia (3) Coronary artery disease: Suspected CABG given central sternotomy scar HIM requested outpatient notes and problem list for better PMHx Continue ASA, metoprolol, atorvastatin Plavix added for stroke, will transition to just Plavix (4) History of CVA (cerebrovascular accident): Patient reports this was 9-10 years ago with residual left leg weakness now with new strokes on MRI (5) Hypertension: In setting of suspected acute CVA will allow permissive hypertension sBP < 220, dBP < 120 Continue routine medication ISMN, chlorthalidone, metoprolol succinate inpatient BP goal for tomorrow will be 140-160 systolic (6) Bifascicular block: monitor (7) DVT prophylaxis: Heparin 5000 units BID Admission and Anticipated Discharge Date Admission Date: October 29, 2019 Subjective patient with confusion, disoriented speaking clearly, just wrong answers constantly trying to get out of bed, fall risk spoke with his daughter over the phone, she said that the change in mental st atus was abrupt she is interested in him going to SNF for rehab, may need placement no obvious physical neurological deficits his daughter said that he 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 Garcia, appreciate his recommendations Review of Systems Review of Systems: Unobtainable due to cognitive status (confused) Physical Exam Constitutional: WD/WN, vitals as above Eyes: PERRL, conjunctivae normal, anicteric sclerae ENMT: external ear and nose normal, oropharynx normal Neck: trachea midline, no thyromegaly Respiratory: normal respiratory effort, lungs clear to auscultation Cardiovascular: RRR, no murmur, no edema Gastrointestinal (Abdomen): normal bowel sounds, soft, nontender, no hep atosplenomegaly Musculoskeletal: no cyanosis or clubbing, extremities motor strength 5/5 Skin: no rashes, warm and dry Neurologic: normal touch/pain/proprioception, CN's II-XI intact bilaterally, deep tendon reflexes 2+ bilaterally, awake and + confused; no focal motor deficits Psychiatric: Orientation: alert, oriented to person and + guarded; + not oriented to place and + not oriented to time Lymphatic: no cervical or axillary lymphadenopathy Results & Data Results & Data ([facility]) Vital Signs (Past 12 Hours) Vital Signs Temp Pulse Resp BP Pulse Ox 10/30/19 11:50 36.4 C L 69 18 152/75 H 96 10/30/19 07:56 36.9 C 58 L 20 186/86 H 98 Laboratory Results Laboratory Results - last 24 hr 10/29/19 10/30/19 10/30/19 20:22 01:00 07:50 WBC 8.11 RBC 5.02 Hgb 14.7 Hct 45.3 MCV 90.2 MCH 29.3 MCHC 32.5 RDW Std Deviation 51.6 H RDW Coeff of Jennifer 15.6 H Plt Count 125 L MPV 12.7 H Immature Gran % (Auto) 0.1 Neut % (Auto) 67.0 Lymph % (Auto) 15.8 [place] % (Auto) 11.2 Eos % (Auto) 5.7 Baso % (Auto) 0.2 Immature Gran # (Auto) 0.01 Neut # (Auto) 5.43 Lymph # (Auto) 1.28 [place] # (Auto) 0.91 H Eos # (Auto) 0.46 Baso # (Auto) 0.02 Sodium Potassium Chloride Carbon Dioxide Anion Gap BUN Creatinine Est Cr Clr Drug Dosing Est GFR ( Amer) Est GFR (Non-Af Amer) BUN/Creatinine Ratio Glucose POC Glucose 144 H Estimat Average Glucose Hemoglobin A1c Calcium Triglycerides Cholesterol LDL Cholesterol, Calc VLDL Cholesterol, Calc HDL Cholesterol Cholesterol/HDL Ratio Urine Color Yellow Urine Appearance Clear Urine pH 8.5 H Ur Specific [place] 1.039 H Urine Protein Negative Urine Glucose (UA) Negative Urine Ketones Negative Urine Blood Negative Urine Nitrite Negative Urine Bilirubin Negative Urine Urobilinogen Negative Ur Leukocyte Esterase Negative Urine WBC (Auto) 1-5 Urine RBC (Auto) 0-4 U Hyaline Cast (Auto) 0 U Epithel Cells (Auto) 10-20 H Urine Bacteria (Auto) Negative 10/30/19 10/30/19 10/30/19 07:50 07:50 08:01 WBC RBC Hgb Hct MCV MCH MCHC RDW Std Deviation RDW Coeff of Jennifer Plt Count MPV Immature Gran % (Auto) Neut % (Auto) Lymph % (Auto) [place] % (Auto) Eos % (Auto) Baso % (Auto) Immature Gran # (Auto) Neut # (Auto) Lymph # (Auto) [place] # (Auto) Eos # (Auto) Baso # (Auto) Sodium 139 Potassium 4.2 Chloride 104 Carbon Dioxide 30 Anion Gap 5.0 BUN 23 H Creatinine 1.28 Est Cr Clr Drug Dosing 36.6 Est GFR ( Amer) 57.1 Est GFR (Non-Af Amer) 49.3 BUN/Creatinine Ratio 18.1 Glucose 146 H POC Glucose 262 H Estimat Average Glucose 160 Hemoglobin A1c 7.2 H Calcium 9.7 Triglycerides 134 Cholesterol 143 LDL Cholesterol, Calc 71 VLDL Cholesterol, Calc 27 HDL Cholesterol 45 Cholesterol/HDL Ratio 3 Urine Color Urine Appearance Urine pH Ur Specific [place] Urine Protein Urine Glucose (UA) Urine Ketones Urine Blood Urine Nitrite Urine Bilirubin Urine Urobilinogen Ur Leukocyte Esterase Urine WBC (Auto) Urine RBC (Auto) U Hyaline Cast (Auto) U Epithel Cells (Auto) Urine Bacteria (Auto) 10/30/19 11:38 WBC RBC Hgb Hct MCV MCH MCHC RDW Std Deviation RDW Coeff of Jennifer Plt Count MPV Immature Gran % (Auto) Neut % (Auto) Lymph % (Auto) [place] % (Auto) Eos % (Auto) Baso % (Auto) Immature Gran # (Auto) Neut # (Auto) Lymph # (Auto) [place] # (Auto) Eos # (Auto) Baso # (Auto) Sodium Potassium Chloride Carbon Dioxide Anion Gap BUN Creatinine Est Cr Clr Drug Dosing Est GFR ( Amer) Est GFR (Non-Af Amer) BUN/Creatinine Ratio Glucose POC Glucose 127 H Estimat Average Glucose Hemoglobin A1c Calcium Triglycerides Cholesterol LDL Cholesterol, Calc VLDL Cholesterol, Calc HDL Cholesterol Cholesterol/HDL Ratio Urine Color Urine Appearance Urine pH Ur Specific [place] Urine Protein Urine Glucose (UA) Urine Ketones Urine Blood Urine Nitrite Urine Bilirubin Urine Urobilinogen Ur Leukocyte Esterase Urine WBC (Auto) Urine RBC (Auto) U Hyaline Cast (Auto) U Epithel Cells (Auto) Urine Bacteria (Auto) Diagnostic Findings MRI brain IMPRESSION: 1. Two tiny subcentimeter foci of restricted diffusion within the right temporal and temporoparietal distributions with an additional subcentimeter focus of restricted diffusion within the left temporal lobe are suggestive of acute or subacute infarcts, likely from thromboembolic source. 2. No territorial infarct, midline shift or intracranial hemorrhage. 3. Age-related involutional changes with ex vacuo ventriculomegaly and extensive T2/FLAIR signal abnormalities suggestive of chronic microvascular ischemic disease. Medications Administered Current Inpatient Medications Aspirin (Ecotrin Ectab) 81 mg PO QAM [facility] Stop: 11/29/19 08:59 Last Admin: 10/30/19 08:08 Dose: 81 mg Documented by: Atorvastatin Calcium (Lipitor) 80 mg PO QAM [facility] Stop: 11/29/19 08:59 Last Admin: 10/30/19 08:07 Dose: 80 mg Documented by: Clopidogrel Bisulfate (Plavix) 75 mg PO QAM [facility] Stop: 11/29/19 08:59 Last Admin: 10/30/19 08:07 Dose: 75 mg Documented by: Dextrose (Dextrose 50%) 25 - 50 ml IV UD PRN; Protocol PRN Reason: Hypoglycemia Protocol Stop: 11/28/19 20:08 Glucagon (Glucagen) 1 mg SQ UD PRN; Protocol PRN Reason: Hypoglycemia Protocol Stop: 11/28/19 20:08 Glucose (Dex4 Glucose) 4 - 8 tabs PO UD PRN; Protocol PRN Reason: Hypoglycemia Protocol Stop: 11/28/19 20:08 Glucose (Glucose 40%) 15 - 30 gm PO UD PRN; Protocol PRN Reason: Hypoglycemia Protocol Stop: 11/28/19 20:08 Heparin Sodium (Porcine) (Heparin Sodium (Porcine)) 5,000 units SQ Q12 [facility] Stop: 11/29/19 08:59 Last Admin: 10/30/19 08:08 Dose: 5,000 units Documented by: Insulin Aspart (Novolog Flexpen) 0 units SC ACHS [facility] Stop: 11/28/19 20:59 Last Admin: 10/30/19 12:06 Dose: 2 units Documented by: [facility] ([facility]) [facility]: 11/29/19 08:59 Last Admin: 10/30/19 08:06 Dose: 75 mg Documented by: Isosorbide Mononitrate (Imdur Extended Rel) 60 mg PO QAM [facility] Stop: 11/29/19 08:59 Last Admin: 10/30/19 08:06 Dose: 60 mg Documented by: Magnesium Oxide (Mag-Ox) 400 mg PO QAM [facility] Stop: 11/29/19 08:59 Last Admin: 10/30/19 08:06 Dose: 400 mg Documented by: Metoprolol Succinate (Toprol Xl) 25 mg PO [facility] Stop: 11/28/19 20:59 Last Admin: 10/29/19 21:35 Dose: 25 mg Documented by: Miscellaneous (Carbohydrates For Hypoglycemia) 15 - 30 gm PO UD PRN PRN Reason: Hypoglycemia Protocol Stop: 11/28/19 20:08 Miscellaneous Information (Pharmacist Discharge Med Rec Consult) 1 ea N/A UD PRN PRN Reason: Consult Stop: 11/28/19 20:08 Multivitamins/Minerals (Multivitamin W/ Minerals Tab) 1 tab PO DAILY [facility] Stop: 11/29/19 08:59 Last Admin: 10/30/19 08:08 Dose: 1 tab Documented by: PG Care Time/CCT Total # of Minutes Spent Total Time Spent: 40 Total Time Spent with Patient: Total time spent is greater than 50% in coordination of care (as documented) at patient's floor/unit and/or counseling patient: 15 minutes talking with his daughter over the phone [address] Garcia 20 minutes with exam, chart review, planning Coding Level of Care Code 25177 Subseq Hosp Care Lvl 3 Diagnoses Acute ischemic multifocal multiple vascular territories stroke I63.89 Type 2 diabetes mellitus E11.9 Coronary artery disease I25.10 History of CVA (cerebrovascular accident) Z86.73 Hypertension I10 Bifascicular block I45.2 DVT prophylaxis Z29.9
--- NOTE | 2019-10-30 16:32 | XCELERA ---
[id number]
[2019-10-30] MEDS: METOPROLOL SUCC 25MG EXT REL TAB PO SCH (20:42)
[2019-10-31 07:53] LABS: Hematocrit (blood only) 43.6 % (42-52); Hemoglobin 14.4 g/dL (14.0-18.0); Mean Corpuscular Hemoglobin 29.6 pg (25-34); Mean Corpuscular Volume 89.7 fL (80-100); Mean Platelet Volume 12.3 fL (7.4-10.4); Platelet Count 122 K/uL (130-400); RDW Coefficient of Variation 15.5 % (11.5-14.5); RDW Standard Deviation 51.4 fL (36.4-46.3); Red Blood Count 4.86 M/uL (4.7-6.1); White Blood Count 8.18 K/uL (4.8-10.8)
[2019-10-31] MEDS: ATORVASTATIN 40 MG TAB PO SCH (08:01)
[2019-10-31] MEDS: CEROVITE ADV FORMULA TAB PO SCH (08:01)
[2019-10-31] MEDS: IRBESARTAN 75 MG TAB PO SCH (08:01)
[2019-10-31] MEDS: ISOSORBIDE MONO EXTENDED REL 60 MG TABCR PO SCH (08:01)
[2019-10-31] MEDS: MAGNESIUM OXIDE 400 MG TAB PO SCH (08:01)
[2019-10-31] MEDS: ASPIRIN 81 MG ECTAB PO SCH (08:01)
[2019-10-31] MEDS: INSULIN ASPART 100 UNITS/ML 3 ML PEN SC SCH ×4 (08:02→20:03)
[2019-10-31] MEDS: HEPARIN SOD 5,000 UNIT/0.5 ML VIAL SQ SCH ×2 (08:02→20:01)
[2019-10-31] MEDS: CLOPIDOGREL BISULFATE 75 MG TAB PO SCH (08:04)
[2019-10-31 08:22] LABS: BUN Creatinine Ratio 17.5 (10-20); Basophils # (auto) 0.03 K/uL (0-0.2); Basophils % (auto) 0.4 %; Calcium 9.3 mg/dl (8.5-10.1); Creatinine Clr Calc Pharmacy 36.8 ml/min; Eosinophils % (auto) 4.9 %; Est GFR (African American) 58.8; Est GFR (Non-African American) 50.7; Immature Granulocytes # (auto) 0.01 K/uL (0.00-0.02); Immature Granulocytes % (auto) 0.1 %; Lymphocytes # (auto) 1.13 K/uL (1.2-3.4); Lymphocytes % (auto) 13.8 %; Monocytes # (auto) 0.77 K/uL (0.11-0.59); Monocytes % (auto) 9.4 %; Neutrophils # (auto) 5.84 K/uL (1.4-6.5); Neutrophils % (auto) 71.4 %; Platelet Estimate Decreased (Normal)
--- NOTE | 2019-10-31 09:17 | Hospitalist Progress Note ---
Date of Service October 31, 2019 Assessment & Plan (1) Acute ischemic multifocal multiple vascular territories stroke: two small strokes in right parietal and one small stroke in left parietal would suggest a cardioembolic source, however, no known h/o atrial fibrillation will treat with Plavix and aspirin x 3 weeks then just Plavix continue statin therapy, LDL well controlled HbA1c is 7.2% which overall is not bad in someone his age, but could be better to decrease risk of future stroke he will increase Metformin to 1000mg BID and continue Januvia would hesitate to added insulin, would not want to cause hypoglycemia BP is elevated again today despite normal BP regimen gave dose of Norvasc 5mg, BP responded well PT/OT consulted, speech consulted daughter wants him to go to SNF rehab plan for [facility] on Sunday, will need COVID test on day of discharge, they will accept with results pending (2) Type 2 diabetes mellitus: Hold metformin and sitagliptin while admitted HbA1C = 7/2% Insulin correction factor only BSG ACHS monitor for hypoglycemia on discharge, would increase Metformin to 1000mg BID (3) Coronary artery disease: Suspected CABG given central sternotomy scar Continue ASA, metoprolol, atorvastatin Plavix added for stroke, will transition to just Plavix after 3 weeks (4) History of CVA (cerebrovascular accident): Patient reports this was 9-10 years ago with residual left leg weakness now with new strokes on MRI (5) Hypertension: In setting of suspected acute CVA will allow permissive hypertension sBP < 220, dBP < 120 Continue routine medication ISMN, chlorthalidone, metoprolol succinate BP still 180's systolic this morning, gave a dose of Norvasc 5mg and BP down to 128 systolic at 11am will monitor closely (6) Bifascicular block: monitor (7) DVT prophylaxis: Heparin 5000 units BID (8) CKD (chronic kidney disease), stage III: Cr is stable, making adequate urine Admission and Anticipated Discharge Date Admission Date: October 29, 2019 Anticipated date of discharge: 11/03/19 Subjective patient doing well, no issues overnight BP still elevated this morning, 180 systolic gave him dose of Norvasc 5mg, BP down to 120's systolic late morning, will monitor patient is eating okay, not great still with confusion spoke with his daughter to give update, plan for [place] [facility] Sunday CM confirmed that [facility] can accept Sunday Review of Systems Review of Systems: Unobtainable due to cognitive status (confused) Physical Exam Constitutional: WD/WN, vitals as above Eyes: PERRL, conjunctivae normal, anicteric sclerae ENMT: external ear and nose normal, oropharynx normal Neck: trachea midline, no thyromegaly Respiratory: normal respiratory effort, lungs clear to auscultation Cardiovascular: RRR, no murmur, no edema Gastrointestinal (Abdomen): normal bowel sounds, soft, nontender, no hepatosplenomegaly Musculoskeletal: no cyanosis or clubbing, extremities motor strength 5/5 Skin: no rashes, warm and dry Neurologic: normal touch/pain/proprioception, CN's II-XI intact bilaterally, deep tendon reflexes 2+ bilaterally, awake and + confused; no focal motor deficits Psychiatric: Orientation: alert, oriented to person and + guarded; + not oriented to place and + not oriented to time Lymphatic: no cervical or axillary lymphadenopathy Results & Data Results & Data ([facility]) Vital Signs (Past 12 Hours) Vital Signs Temp Pulse Pulse Resp BP BP Pulse Ox 10/31/19 07:37 90 10/31/19 07:29 37.0 C 68 18 182/73 H 94 10/31/19 04:19 36.8 C 67 17 180/78 H 96 10/31/19 00:15 36.7 C 71 19 187/86 H 97 10/30/19 23:12 73 Laboratory Results Laboratory Results - last 24 hr 10/30/19 10/30/19 10/31/19 16:34 20:45 07:17 WBC RBC Hgb Hct MCV MCH MCHC RDW Std Deviation RDW Coeff of Jennifer Plt Count MPV Immature Gran % (Auto) Neut % (Auto) Lymph % (Auto) [place] % (Auto) Eos % (Auto) Baso % (Auto) Immature Gran # (Auto) Neut # (Auto) Lymph # (Auto) [place] # (Auto) Eos # (Auto) Baso # (Auto) Platelet Estimate Sodium Potassium Chloride Carbon Dioxide Anion Gap BUN Creatinine Est Cr Clr Drug Dosing Est GFR ( Amer) Est GFR (Non-Af Amer) BUN/Creatinine Ratio Glucose POC Glucose 214 H 172 H 155 H Calcium 10/31/19 10/31/19 10/31/19 07:19 07:19 11:58 WBC 8.18 RBC 4.86 Hgb 14.4 Hct 43.6 MCV 89.7 MCH 29.6 MCHC 33.0 RDW Std Deviation 51.4 H RDW Coeff of Jennifer 15.5 H Plt Count 122 L MPV 12.3 H Immature Gran % (Auto) 0.1 Neut % (Auto) 71.4 Lymph % (Auto) 13.8 [place] % (Auto) 9.4 Eos % (Auto) 4.9 Baso % (Auto) 0.4 Immature Gran # (Auto) 0.01 Neut # (Auto) 5.84 Lymph # (Auto) 1.13 L [place] # (Auto) 0.77 H Eos # (Auto) 0.40 Baso # (Auto) 0.03 Platelet Estimate Decreased L Sodium 137 Potassium 4.0 Chloride 102 Carbon Dioxide 28 Anion Gap 7.0 BUN 22 H Creatinine 1.25 Est Cr Clr Drug Dosing 36.8 Est GFR ( Amer) 58.8 Est GFR (Non-Af Amer) 50.7 BUN/Creatinine Ratio 17.5 Glucose 159 H POC Glucose 181 H Calcium 9.3 Medications Administered Current Inpatient Medications Amlodipine Besylate (Norvasc) 5 mg PO [facility] Stop: 11/30/19 08:59 Last Admin: 10/31/19 09:56 Dose: 5 mg Documented by: Aspirin (Ecotrin Ectab) 81 mg PO [facility] Stop: 11/29/19 08:59 Last Admin: 10/31/19 08:01 Dose: 81 mg Documented by: Atorvastatin Calcium (Lipitor) 80 mg PO [facility] Stop: 11/29/19 08:59 Last Admin: 10/31/19 08:01 Dose: 80 mg Documented by: Clopidogrel Bisulfate (Plavix) 75 mg PO [facility] Stop: 11/29/19 08:59 Last Admin: 10/31/19 08:04 Dose: 75 mg Documented by: Dextrose (Dextrose 50%) 25 - 50 ml IV UD PRN; Protocol PRN Reason: Hypoglycemia Protocol Stop: 11/28/19 20:08 Glucagon (Glucagen) 1 mg SQ UD PRN; Protocol PRN Reason: Hypoglycemia Protocol Stop: 11/28/19 20:08 Glucose (Dex4 Glucose) 4 - 8 tabs PO UD PRN; Protocol PRN Reason: Hypoglycemia Protocol Stop: 11/28/19 20:08 Glucose (Glucose 40%) 15 - 30 gm PO UD PRN; Protocol PRN Reason: Hypoglycemia Protocol Stop: 11/28/19 20:08 Heparin Sodium (Porcine) (Heparin Sodium (Porcine)) 5,000 units SQ Q12 [facility] Stop: 11/29/19 08:59 Last Admin: 10/31/19 08:02 Dose: 5,000 units Documented by: Insulin Aspart (Novolog Flexpen) 0 units SC ACHS [facility] Stop: 11/28/19 20:59 Last Admin: 10/31/19 12:15 Dose: 3 units Documented by: Irbesartan (Avapro) 75 mg PO QAM [facility] Stop: 12/01/19 08:59 Isosorbide Mononitrate (Imdur Extended Rel) 60 mg PO QAM [facility] Stop: 11/29/19 08:59 Last Admin: 10/31/19 08:01 Dose: 60 mg Documented by: Magnesium Oxide (Mag-Ox) 400 mg PO QAM [facility] Stop: 11/29/19 08:59 Last Admin: 10/31/19 08:01 Dose: 400 mg Documented by: Metoprolol Succinate (Toprol Xl) 25 mg PO HS [facility] Stop: 11/28/19 20:59 Last Admin: 10/30/19 20:42 Dose: 25 mg Documented by: Miscellaneous (Carbohydrates For Hypoglycemia) 15 - 30 gm PO UD PRN PRN Reason: Hypoglycemia Protocol Stop: 11/28/19 20:08 Multivitamins/Minerals (Multivitamin W/ Minerals Tab) 1 tab PO DAILY [facility] Stop: 11/29/19 08:59 Last Admin: 10/31/19 08:01 Dose: 1 tab Documented by: PG Care Time/CCT Total # of Minutes Spent Total Time Spent with Patient: Total time spent is greater than 50% in coordination of care (as documented) at patient's floor/unit and/or counseling patient: Coding Level of Care Code 26321 Subseq Hosp Care Lvl 2 Diagnoses Acute ischemic multifocal multiple vascular territories stroke I63.89 Type 2 diabetes mellitus E11.9 Coronary artery disease I25.10 History of CVA (cerebrovascular accident) Z86.73 Hypertension I10 Bifascicular block I45.2 DVT prophylaxis Z29.9 CKD (chronic kidney disease), stage III N18.3
[2019-10-31] MEDS: AMLODIPINE BESYLATE 5 MG TAB PO SCH (09:56)
[2019-10-31] MEDS: METOPROLOL SUCC 25MG EXT REL TAB PO SCH (20:00)
[2019-11-01 07:40] LABS: Hematocrit (blood only) 43.5 % (42-52); Hemoglobin 14.5 g/dL (14.0-18.0); Mean Corpuscular Hemoglobin 29.7 pg (25-34); Mean Corpuscular Hgb Conc 33.3 g/dL (32-36); Mean Platelet Volume 12.5 fL (7.4-10.4); Platelet Count 119 K/uL (130-400); RDW Coefficient of Variation 15.5 % (11.5-14.5); RDW Standard Deviation 50.6 fL (36.4-46.3); Red Blood Count 4.89 M/uL (4.7-6.1); White Blood Count 6.95 K/uL (4.8-10.8)
[2019-11-01 07:49] LABS: BUN Creatinine Ratio 18.4 (10-20); Calcium 9.1 mg/dl (8.5-10.1); Creatinine Clr Calc Pharmacy 41.1 ml/min; Est GFR (African American) 67.1; Est GFR (Non-African American) 57.9
[2019-11-01] MEDS: IRBESARTAN 150 MG TAB PO SCH (07:53)
[2019-11-01] MEDS: ISOSORBIDE MONO EXTENDED REL 60 MG TABCR PO SCH (07:53)
[2019-11-01 07:54] LABS: Basophils # (auto) 0.02 K/uL (0-0.2); Basophils % (auto) 0.3 %; Eosinophils % (auto) 7.2 %; Immature Granulocytes # (auto) 0.01 K/uL (0.00-0.02); Immature Granulocytes % (auto) 0.1 %; Lymphocytes # (auto) 1.12 K/uL (1.2-3.4); Lymphocytes % (auto) 16.1 %; Monocytes # (auto) 0.79 K/uL (0.11-0.59); Monocytes % (auto) 11.4 %; Neutrophils # (auto) 4.51 K/uL (1.4-6.5); Neutrophils % (auto) 64.9 %; RBC Morphology Unremarkable
[2019-11-01] MEDS: ATORVASTATIN 40 MG TAB PO SCH (07:54)
[2019-11-01] MEDS: AMLODIPINE BESYLATE 5 MG TAB PO SCH (07:54)
[2019-11-01] MEDS: MAGNESIUM OXIDE 400 MG TAB PO SCH (07:55)
[2019-11-01] MEDS: CLOPIDOGREL BISULFATE 75 MG TAB PO SCH (07:55)
[2019-11-01] MEDS: CEROVITE ADV FORMULA TAB PO SCH (07:55)
[2019-11-01] MEDS: ASPIRIN 81 MG ECTAB PO SCH (07:55)
[2019-11-01] MEDS: INSULIN ASPART 100 UNITS/ML 3 ML PEN SC SCH ×4 (08:46→20:28)
[2019-11-01] MEDS: HEPARIN SOD 5,000 UNIT/0.5 ML VIAL SQ SCH ×2 (08:46→20:27)
--- NOTE | 2019-11-01 12:40 | Hospitalist Progress Note ---
Date of Service November 01, 2019 Assessment & Plan (1) Acute ischemic multifocal multiple vascular territories stroke: two small strokes in right parietal and one small stroke in left parietal would suggest a cardioembolic source, however, no known h/o atrial fibrillation will treat with Plavix and aspirin x 3 weeks then just Plavix continue statin therapy, LDL well controlled HbA1c is 7.2% which overall is not bad in someone his age, but could be better to decrease risk of future stroke he will increase Metformin to 1000mg BID and continue Januvia would hesitate to added insulin, would not want to cause hypoglycemia BP is elevated this morning but responded well to Norvasc yesterday continue Norvasc 5mg in addition to other medications from home PT/OT consulted, speech consulted daughter wants him to go to SNF rehab plan for [facility] on Sunday, will need COVID test on day of discharge, they will accept with results pending (2) Type 2 diabetes mellitus: Hold metformin and sitagliptin while admitted HbA1C = 7.2% Insulin correction factor only BSG ACHS monitor for hypoglycemia on discharge, would increase Metformin to 1000mg BID (3) Coronary artery disease: Suspected CABG given central sternotomy scar Continue ASA, metoprolol, atorvastatin Plavix added for stroke, will transition to just Plavix after 3 weeks (4) History of CVA (cerebrovascular accident): Patient reports this was 9-10 years ago with residual left leg weakness now with new strokes on MRI (5) Hypertension: In setting of suspected acute CVA will allow permissive hypertension sBP < 220, dBP < 120 Continue routine medication ISMN, chlorthalidone, metoprolol succinate BP 170's this morning, continue with addition of Norvasc 5mg daily goal is for BP 140-160 systolic (6) Bifascicular block: monitor (7) DVT prophylaxis: Heparin 5000 units BID (8) CKD (chronic kidney disease), stage III: Cr is stable, making adequate urine Admission and Anticipated Discharge Date Admission Date: October 29, 2019 Anticipated date of discharge: 11/03/19 Subjective patient pleasant, sitting in chair staring out the window says he likes that everything "looks so green right now" no complaints, eating fairly well discussed going to rehab, he does not understand, confused at baseline BP is elevated in 170's this morning Review of Systems Review of Systems: Unobtainable due to cognitive status (confused) Physical Exam Constitutional: WD/WN, vitals as above Eyes: PERRL, conjunctivae normal, anicteric sclerae ENMT: external ear and nose normal, oropharynx normal Neck: trachea midline, no thyromegaly Respiratory: normal respiratory effort, lungs clear to auscultation Cardiovascular: RRR, no murmur, no edema Gastrointestinal (Abdomen): normal bowel sounds, soft, nontender, no hepatosplenomegaly Musculoskeletal: no cyanosis or clubbing, extremities motor strength 5/5 Skin: no rashes, warm and dry Neurologic: normal touch/pain/proprioception, CN's II-XI intact bilaterally, deep tendon reflexes 2+ bilaterally, awake and + confused; no focal motor deficits Psychiatric: Orientation: alert and oriented to person; + not oriented to place and + not oriented to time Lymphatic: no cervical or axillary lymphadenopathy Results & Data Results & Data ([facility]) Vital Signs (Past 12 Hours) Vital Signs Temp Pulse Resp BP Pulse Ox 11/01/19 08:16 36.8 C 58 L 18 174/68 H 98 Laboratory Results Laboratory Results - last 24 hr 10/31/19 10/31/19 11/01/19 17:09 20:03 06:41 WBC 6.95 RBC 4.89 Hgb 14.5 Hct 43.5 MCV 89.0 MCH 29.7 MCHC 33.3 RDW Std Deviation 50.6 H RDW Coeff of Jennifer 15.5 H Plt Count 119 L MPV 12.5 H Immature Gran % (Auto) 0.1 Neut % (Auto) 64.9 Lymph % (Auto) 16.1 [place] % (Auto) 11.4 Eos % (Auto) 7.2 Baso % (Auto) 0.3 Immature Gran # (Auto) 0.01 Neut # (Auto) 4.51 Lymph # (Auto) 1.12 L [place] # (Auto) 0.79 H Eos # (Auto) 0.50 Baso # (Auto) 0.02 RBC Morphology Unremarkable Sodium Potassium Chloride Carbon Dioxide Anion Gap BUN Creatinine Est Cr Clr Drug Dosing Est GFR ( Amer) Est GFR (Non-Af Amer) BUN/Creatinine Ratio Glucose POC Glucose 207 H 128 H Calcium 11/01/19 11/01/19 11/01/19 06:41 07:44 11:31 WBC RBC Hgb Hct MCV MCH MCHC RDW Std Deviation RDW Coeff of Jennifer Plt Count MPV Immature Gran % (Auto) Neut % (Auto) Lymph % (Auto) [place] % (Auto) Eos % (Auto) Baso % (Auto) Immature Gran # (Auto) Neut # (Auto) Lymph # (Auto) [place] # (Auto) Eos # (Auto) Baso # (Auto) RBC Morphology Sodium 138 Potassium 4.0 Chloride 104 Carbon Dioxide 27 Anion Gap 7.0 BUN 21 H Creatinine 1.12 Est Cr Clr Drug Dosing 41.1 Est GFR ( Amer) 67.1 Est GFR (Non-Af Amer) 57.9 BUN/Creatinine Ratio 18.4 Glucose 143 H POC Glucose 170 H 203 H Calcium 9.1 Medications Administered Current Inpatient Medications Amlodipine Besylate (Norvasc) 5 mg PO [facility] Stop: 11/30/19 08:59 Last Admin: 11/01/19 07:54 Dose: 5 mg Documented by: Aspirin (Ecotrin Ectab) 81 mg PO [facility] Stop: 11/29/19 08:59 Last Admin: 11/01/19 07:55 Dose: 81 mg Documented by: Atorvastatin Calcium (Lipitor) 80 mg PO [facility] Stop: 11/29/19 08:59 Last Admin: 11/01/19 07:54 Dose: 80 mg Documented by: Clopidogrel Bisulfate (Plavix) 75 mg PO [facility] Stop: 11/29/19 08:59 Last Admin: 11/01/19 07:55 Dose: 75 mg Documented by: Dextrose (Dextrose 50%) 25 - 50 ml IV UD PRN; Protocol PRN Reason: Hypoglycemia Protocol Stop: 11/28/19 20:08 Glucagon (Glucagen) 1 mg SQ UD PRN; Protocol PRN Reason: Hypoglycemia Protocol Stop: 11/28/19 20:08 Glucose (Dex4 Glucose) 4 - 8 tabs PO UD PRN; Protocol PRN Reason: Hypoglycemia Protocol Stop: 11/28/19 20:08 Glucose (Glucose 40%) 15 - 30 gm PO UD PRN; Protocol PRN Reason: Hypoglycemia Protocol Stop: 11/28/19 20:08 Heparin Sodium (Porcine) (Heparin Sodium (Porcine)) 5,000 units SQ Q12 [facility] Stop: 11/29/19 08:59 Last Admin: 11/01/19 08:46 Dose: 5,000 units Documented by: Insulin Aspart (Novolog Flexpen) 0 units SC ACHS [facility] Stop: 11/28/19 20:59 Last Admin: 11/01/19 08:46 Dose: 3 units Documented by: Irbesartan (Avapro) 75 mg PO QAM [facility] Stop: 12/01/19 08:59 Last Admin: 11/01/19 07:53 Dose: 75 mg Documented by: Isosorbide Mononitrate (Imdur Extended Rel) 60 mg PO QAM [facility] Stop: 11/29/19 08:59 Last Admin: 11/01/19 07:53 Dose: 60 mg Documented by: Magnesium Oxide (Mag-Ox) 400 mg PO QAM [facility] Stop: 11/29/19 08:59 Last Admin: 11/01/19 07:55 Dose: 400 mg Documented by: Metoprolol Succinate (Toprol Xl) 25 mg PO HS [facility] Stop: 11/28/19 20:59 Last Admin: 10/31/19 20:00 Dose: 25 mg Documented by: Miscellaneous (Carbohydrates For Hypoglycemia) 15 - 30 gm PO UD PRN PRN Reason: Hypoglycemia Protocol Stop: 11/28/19 20:08 Multivitamins/Minerals (Multivitamin W/ Minerals Tab) 1 tab PO DAILY [facility] Stop: 11/29/19 08:59 Last Admin: 11/01/19 07:55 Dose: 1 tab Documented by: PG Care Time/CCT Total # of Minutes Spent Total Time Spent with Patient: Total time spent is greater than 50% in coordination of care (as documented) at patient's floor/unit and/or counseling patient: Coding Level of Care Code 83017 Subseq Hosp Care Lvl 2 Diagnoses Acute ischemic multifocal multiple vascular territories stroke I63.89 Type 2 diabetes mellitus E11.9 Coronary artery disease I25.10 History of CVA (cerebrovascular accident) Z86.73 Hypertension I10 Bifascicular block I45.2 DVT prophylaxis Z29.9 CKD (chronic kidney disease), stage III N18.3
[2019-11-01] MEDS: METOPROLOL SUCC 25MG EXT REL TAB PO SCH (20:26)
[2019-11-02] MEDS: MAGNESIUM OXIDE 400 MG TAB PO SCH (07:37)
[2019-11-02] MEDS: ASPIRIN 81 MG ECTAB PO SCH (07:37)
[2019-11-02] MEDS: ISOSORBIDE MONO EXTENDED REL 60 MG TABCR PO SCH (07:38)
[2019-11-02] MEDS: IRBESARTAN 150 MG TAB PO SCH (07:38)
[2019-11-02] MEDS: CEROVITE ADV FORMULA TAB PO SCH (07:39)
[2019-11-02] MEDS: CLOPIDOGREL BISULFATE 75 MG TAB PO SCH (07:39)
[2019-11-02] MEDS: AMLODIPINE BESYLATE 5 MG TAB PO SCH (07:39)
[2019-11-02] MEDS: ATORVASTATIN 40 MG TAB PO SCH (07:39)
[2019-11-02] MEDS: INSULIN ASPART 100 UNITS/ML 3 ML PEN SC SCH ×4 (08:58→21:18)
[2019-11-02] MEDS: HEPARIN SOD 5,000 UNIT/0.5 ML VIAL SQ SCH ×2 (08:58→21:17)
--- NOTE | 2019-11-02 13:58 | Hospitalist Progress Note ---
Date of Service November 02, 2019 Assessment & Plan (1) Acute ischemic multifocal multiple vascular territories stroke: two small strokes in right parietal and one small stroke in left parietal would suggest a cardioembolic source, however, no known h/o atrial fibrillation will treat with Plavix and aspirin x 3 weeks then just Plavix continue statin therapy, LDL well controlled HbA1c is 7.2% which overall is not bad in someone his age, but could be better to decrease risk of future stroke he will increase Metformin to 1000mg BID and continue Januvia would hesitate to added insulin, would not want to cause hypoglycemia BP responded well to Norvasc continue Norvasc 5mg in addition to other medications from home as far as anticoagulation for possible afib, his daughter said he used to take Xarelto but he had a series of nosebleeds Xarelto was discontinued in February 2019 no plans to resume anticoagulation given bleeding risk, his age and dementia PT/OT consulted, speech consulted daughter wants him to go to SNF rehab plan for [facility] on Sunday, will need COVID test, this was ordered today, [facility] will accept patient with results still pending (2) Type 2 diabetes mellitus: Hold metformin and sitagliptin while admitted HbA1C = 7.2% Insulin correction factor only BSG ACHS monitor for hypoglycemia on discharge, would increase Metformin to 1000mg BID (3) Coronary artery disease: Suspected CABG given central sternotomy scar Continue ASA, metoprolol, atorvastatin Plavix added for stroke, will transition to just Plavix after 3 weeks (4) History of CVA (cerebrovascular accident): Patient reports this was 9-10 years ago with residual left leg weakness now with new strokes on MRI (5) Hypertension: In setting of suspected acute CVA will allow permissive hypertension sBP < 220, dBP < 120 Continue routine medication ISMN, chlorthalidone, metoprolol succinate BP 170's earlier in stay, added Norvasc 5mg daily goal is for BP 140-160 systolic BP now well controlled (6) Bifascicular block: monitor (7) DVT prophylaxis: Heparin 5000 units BID (8) CKD (chronic kidney disease), stage III: Cr is stable, making adequate urine Plan: discharge to [facility] on Sunday of note, he will be on Aspirin and Plavix x 3 weeks then just Plavix no plans for anticoagulation given history of nose bleeds and no afib documented Norvasc 5mg daily added should increase Metformin to 1000mg BID COVID 19 screen ordered today, [facility] will accept with results pending Admission and Anticipated Discharge Date Admission Date: October 29, 2019 Anticipated date of discharge: 11/03/19 Subjective patient doing well, no acute issues eating well participated in therapy, planning for [facility] tomorrow Review of Systems Review of Systems: All systems reviewed & are unremarkable except as noted in HPI & below Physical Exam Constitutional: WD/WN, vitals as above Eyes: PERRL, conjunctivae normal, anicteric sclerae ENMT: external ear and nose normal, oropharynx normal Neck: trachea midline, no thyromegaly Respiratory: normal respiratory effort, lungs clear to auscultation Cardiovascular: RRR, no murmur, no edema Gastrointestinal (Abdomen): normal bowel sounds, soft, nontender, no hepatosplenomegaly Musculoskeletal: no cyanosis or clubbing, extremities motor strength 5/5 Skin: no rashes, warm and dry Neurologic: normal touch/pain/proprioception, CN's II-XI intact bilaterally, deep tendon reflexes 2+ bilaterally, awake and + confused; no focal motor deficits Psychiatric: Orientation: alert and oriented to person; + not oriented to place and + not oriented to time Lymphatic: no cervical or axillary lymphadenopathy Results & Data Results & Data ([facility]) Vital Signs (Past 12 Hours) Vital Signs Temp Pulse Resp BP Pulse Ox 11/02/19 07:28 36.4 C L 75 17 132/66 97 Laboratory Results Laboratory Results - last 24 hr 11/01/19 11/01/19 11/02/19 16:54 20:09 07:50 POC Glucose 222 H 167 H 138 H 11/02/19 11:43 POC Glucose 292 H Medications Administered Current Inpatient Medications Amlodipine Besylate (Norvasc) 5 mg PO [facility] Stop: 11/30/19 08:59 Last Admin: 11/02/19 07:39 Dose: 5 mg Documented by: Aspirin (Ecotrin Ectab) 81 mg PO [facility] Stop: 11/29/19 08:59 Last Admin: 11/02/19 07:37 Dose: 81 mg Documented by: Atorvastatin Calcium (Lipitor) 80 mg PO [facility] Stop: 11/29/19 08:59 Last Admin: 11/02/19 07:39 Dose: 80 mg Documented by: Clopidogrel Bisulfate (Plavix) 75 mg PO [facility] Stop: 11/29/19 08:59 Last Admin: 11/02/19 07:39 Dose: 75 mg Documented by: Dextrose (Dextrose 50%) 25 - 50 ml IV UD PRN; Protocol PRN Reason: Hypoglycemia Protocol Stop: 11/28/19 20:08 Glucagon (Glucagen) 1 mg SQ UD PRN; Protocol PRN Reason: Hypoglycemia Protocol Stop: 11/28/19 20:08 Glucose (Dex4 Glucose) 4 - 8 tabs PO UD PRN; Protocol PRN Reason: Hypoglycemia Protocol Stop: 11/28/19 20:08 Glucose (Glucose 40%) 15 - 30 gm PO UD PRN; Protocol PRN Reason: Hypoglycemia Protocol Stop: 11/28/19 20:08 Heparin Sodium (Porcine) (Heparin Sodium (Porcine)) 5,000 units SQ Q12 [facility] Stop: 11/29/19 08:59 Last Admin: 11/02/19 08:58 Dose: 5,000 units Documented by: Insulin Aspart (Novolog Flexpen) 0 units SC ACHS [facility] Stop: 11/28/19 20:59 Last Admin: 11/02/19 12:28 Dose: 8 units Documented by: Irbesartan (Avapro) 75 mg PO QAM [facility] Stop: 12/01/19 08:59 Last Admin: 11/02/19 07:38 Dose: 75 mg Documented by: Isosorbide Mononitrate (Imdur Extended Rel) 60 mg PO QAM [facility] Stop: 11/29/19 08:59 Last Admin: 11/02/19 07:38 Dose: 60 mg Documented by: Magnesium Oxide (Mag-Ox) 400 mg PO QAM [facility] Stop: 11/29/19 08:59 Last Admin: 11/02/19 07:37 Dose: 400 mg Documented by: Metoprolol Succinate (Toprol Xl) 25 mg PO HS [facility] Stop: 11/28/19 20:59 Last Admin: 11/01/19 20:26 Dose: 25 mg Documented by: Miscellaneous (Carbohydrates For Hypoglycemia) 15 - 30 gm PO UD PRN PRN Reason: Hypoglycemia Protocol Stop: 11/28/19 20:08 Multivitamins/Minerals (Multivitamin W/ Minerals Tab) 1 tab PO DAILY [facility] Stop: 11/29/19 08:59 Last Admin: 11/02/19 07:39 Dose: 1 tab Documented by: PG Care Time/CCT Total # of Minutes Spent Total Time Spent with Patient: Total time spent is greater than 50% in coordination of care (as documented) at patient's floor/unit and/or counseling patient: Coding Level of Care Code 49850 Subseq Hosp Care Lvl 2 Diagnoses Acute ischemic multifocal multiple vascular territories stroke I63.89 Type 2 diabetes mellitus E11.9 Coronary artery disease I25.10 History of CVA (cerebrovascular accident) Z86.73 Hypertension I10 Bifascicular block I45.2 DVT prophylaxis Z29.9 CKD (chronic kidney disease), stage III N18.3
[2019-11-02] MEDS: METOPROLOL SUCC 25MG EXT REL TAB PO SCH (21:20)
[2019-11-03] MEDS: ISOSORBIDE MONO EXTENDED REL 60 MG TABCR PO SCH (07:42)
[2019-11-03] MEDS: ATORVASTATIN 40 MG TAB PO SCH (07:42)
[2019-11-03] MEDS: AMLODIPINE BESYLATE 5 MG TAB PO SCH (07:42)
[2019-11-03] MEDS: CEROVITE ADV FORMULA TAB PO SCH (07:42)
[2019-11-03] MEDS: CLOPIDOGREL BISULFATE 75 MG TAB PO SCH (07:42)
[2019-11-03] MEDS: MAGNESIUM OXIDE 400 MG TAB PO SCH (07:43)
[2019-11-03] MEDS: ASPIRIN 81 MG ECTAB PO SCH (07:43)
[2019-11-03] MEDS: IRBESARTAN 150 MG TAB PO SCH (07:43)
[2019-11-03] MEDS: HEPARIN SOD 5,000 UNIT/0.5 ML VIAL SQ SCH (08:20)
[2019-11-03] MEDS: INSULIN ASPART 100 UNITS/ML 3 ML PEN SC SCH ×2 (08:20→12:19)
--- NOTE | 2019-11-03 12:16 | Discharge Summary ---
Date of Service November 03, 2019 Admission HPI Per Admitting Provider Yared Orosco is an 89 year old male who presents to the ER with expressive dysphasia. Last known normal 6pm yesterday. The patient was unable to provide a history on his current expressive dysphasia and word finding difficulty and I was unable to reach his daughter by phone at the time of admission. As per ER notes his son-in-law went to bathe him today and noticed he was using the wrong words and getting frustrated finding the right words to say. When seen the patient was still having the occasional word finding difficulty. He was able to tell me the year but wrong month. Able to tell me he was in [facility]. Does not appear to be confused but hesitates to find the right words often during our conversation. He does note a history of a stroke approximately 9-10 years ago with residual difficulty with his left leg weakness. He denies any cough, shortness of breath, fever, loss of taste or smell. No known COVID-19 exposure. Principal Diagnosis Acute ischemic CVA Discharge Exam Constitutional WD/WN, vitals as above Eyes + anicteric sclerae and EOM intact bilaterally Neck trachea midline, no thyromegaly Respiratory normal respiratory effort, lungs clear to auscultation Cardiovascular Rate/Rhythm: regular rate and regular rhythm Heart Sounds: + murmur (2/6 systolic murmur at the right upper sternal border) Extremities: no edema Chest (Breasts) Chest: normal inspection of chest Gastrointestinal (Abdomen) normal bowel sounds, soft, nontender, no hepatosplenomegaly Musculoskeletal Extremities: extremities normal to inspection; no cyanosis and no clubbing Skin no rashes, warm and dry Neurologic moves all extremities and awake; no focal motor deficits and not confused Speech / Cognition: normal speech Psychiatric A+Ox3, euthymic affect Lymphatic no lymphedema Discharge Data Allergies Allergy/AdvReac Type Severity Reaction Status Date / Time hydrochlorothiazide Allergy Redness of Unverified 10/29/19 11:56 Skin Consultations 10/29/19 14:23 ED Decision to Admit Stat 10/29/19 20:09 Consult Case Management - Discharge Planning Routine Consult Neurology Routine 10/29/19 23:57 Consult Health Information Management Routine Ordered Studies 10/29/19 12:03 CT angio head w con Stat CT angio neck with con Stat CT head/brain wo con Stat 10/29/19 20:09 MR brain wo con Routine Echocardiogram Hospital Course (1) Acute ischemic multifocal multiple vascular territories stroke: Admitted with expressive aphasia Was found to have two small strokes in right parietal and one small stroke in left parietal would suggest a cardioembolic source, however, no known h/o atrial fibrillation CT angiogram of the head and neck with severe mixed plaque of the bilateral carotid bulbs results in 70% luminal narrowing of the proximal right ICA and less than 50% stenosis on the left and high-grade stenosis involves the V4 segment left vertebral artery (no intervention indicated at this time). -Will treat with Plavix and aspirin x 3 weeks then just Plavix as per neurology recommendation -Continue intensity statin therapy, LDL well controlled HbA1c is 7.2% which overall is not bad in someone his age, but could be better to decrease risk of future stroke he will increase Metformin to 1000mg XR once daily and continue Januvia would hesitate to added insulin, would not want to cause hypoglycemia BP responded well to Norvasc -Continue Norvasc 5mg in addition to other medications from home although his chlorthalidone was held throughout the admission-we will discontinue chlorthalidone as far as anticoagulation for possible afib, his daughter said he used to take Xarelto but he had a series of nosebleeds Xarelto was discontinued in February 2019 no plans to resume anticoagulation given bleeding risk, his age and dementia unless atrial fibrillation is found on 30-day event monitor after discharge PT/OT consulted, speech consulted Plans for discharge to SNF rehab (2) Type 2 diabetes mellitus: Hold metformin and sitagliptin while admitted HbA1C = 7.2% Insulin correction factor only BSG ACHS monitor for hypoglycemia on discharge, would increase Metformin to 1000mg XR once daily (3) Coronary artery disease: Suspected, but unsure of history Did have aortic valve replacement Continue ASA, metoprolol, atorvastatin Plavix added for stroke, will transition to just Plavix after 3 weeks (4) History of CVA (cerebrovascular accident): Patient reports this was 9-10 years ago with residual left leg weakness now with new strokes on MRI (5) Hypertension: Initially allowed permissive hypertension, but will now need better control. Blood pressures are a bit labile at times. Chlorthalidone was held from home and will be discontinued in favor of addition of amlodipine 5 mg daily -Continue metoprolol, losartan, and isosorbide goal is for BP 140-160 systolic BP now well controlled Continue to follow after discharge (6) Bifascicular block: monitor , Noted (7) CKD (chronic kidney disease), stage III: Cr is stable, making adequate urine (8) Carotid artery stenosis: Noted as above on CT angiogram of the neck Needs to be followed at least annually with carotid artery ultrasound -Continue antiplatelet therapy and high intensity statin (9) Vertebral artery stenosis: As noted above Again, antiplatelet therapy and statin indicated No surgical intervention (10) History of aortic valve replacement: Noted on echocardiogram (11) DVT prophylaxis: Heparin 5000 units BID Plan: discharge to [facility] today of note, he will be on Aspirin and Plavix x 3 weeks then just Plavix no plans for anticoagulation given history of nose bleeds and no afib documented-recommend 30-day event monitor after discharge to look for atrial fibrillation that is occult Norvasc 5mg daily added should increase Metformin to 1000mg XR once daily COVID 19 screen ordered and pending at the time of discharge Total Time Total Time Spent Total Time Spent (In Minutes): Greater than 30 minutes Total Time Includes: Examination of the Patient, Discharge Planning and Medication Reconciliation Discharge Plan Discharge Items Patient Disposition: Transfer Alf Fac Reason For Visit: STROKE-LIKE SYMPTOMS Discharge Diagnosis: Acute ischemic CVA Condition on Discharge: Good Activity: As commented below Bathing: No limitations Exercise/Sports: Gradually increase as tolerated Exercise Comment: With PT/OT Weightbearing: Full weightbearing Non-emergency contact: Primary Care Provider Call non-emergency contact if: you have any medication questions and your symptoms worsen Follow-up/Referrals: Alfa Carrillo MD [Primary Care Provider] - (Follow-up within 2 weeks after discharge from [facility]) Diet: Carb Consistent or DM2 and Heart Healthy Addtl Attending Provider Instructions: You are admitted and found to have a new stroke. Your blood pressure will be better controlled with the addition of amlodipine 5 mg by mouth once daily. Your metformin will also be increased in dosing to better control your diabetes. You will be on Plavix and aspirin together for the next 3 weeks, and then can discontinue the aspirin and remain on Plavix once daily alone. It is recommended that you get a 30-day cardiac event monitor placed while at rehab to assess to see if you have any irregular heartbeat called atrial fibrillation which could have caused your strokes. Risk Factors for Stroke: You can reduce your chances of stroke by working with your medical provider to adopt a healthy lifestyle. Some specific ways to lower your chance of stroke are: * If you are a smoker, now is the time to stop smoking cigarettes * If you are diabetic, improve the control of your blood sugars * Avoid excessive amounts of alcohol * Control high blood pressure * Lose weight if you are overweight * Be sure to lead an active lifestyle * Eat a healthy diet low in salt, cholesterol and fat You should know about other risk factors for stroke that you are unable to control. These include: * Age 55 years or older * Male gender * Certain racial groups: , or / * Family History of Stroke, Mini stroke or Heart Attack * Sickle Cell Disease Follow Up: It is important for you to keep your follow up appointments with your medical provider. Who to Call and When: Medical Emergencies: Call 911 immediately if you experience any of the following warning signs and symptoms of Stroke: * Sudden numbness or weakness of the face, arm or leg, especially on one side of the body * Sudden confusion, trouble speaking or understanding * Sudden trouble seeing in one or both eyes * Sudden trouble walking, dizziness, loss of balance or coordination * Sudden severe headache with no cause Do not delay calling 911 if you experience any warning signs or symptoms of a stroke. Delay in seeking medical attention may affect what treatments can be given to you. . Pending Studies at Discharge: Yes (COVID-19 test) Stand-Alone Forms: My [facility] Skilled Items Patient informed of condition?: Yes DNR: Yes Discharge Level of Care: Skilled Communicable Disease: No Discharge Prognosis: Improving Lines: None Urinary Catheter: No Medications and DC Order Prescriptions: New clopidogrel 75 mg Tablet 75 mg PO QAM Qty: 30 RF: 0 amlodipine [Norvasc] 5 mg Tablet 5 mg PO QAM Qty: 30 RF: 0 Continued atorvastatin 80 mg Tablet 80 mg PO QAM RF: 0 isosorbide mononitrate 60 mg Tablet Extended Release 24 Hr 60 mg PO QAM RF: 0 magnesium 250 mg Tablet 250 mg PO QAM RF: 0 metoprolol succinate [Toprol XL] 25 mg Tablet Extended Release 24 Hr 25 mg PO HS RF: 0 irbesartan 150 mg Tablet 75 mg PO QAM RF: 0 Januvia 100 mg Tablet 100 mg PO QAM RF: 0 PreserVision AREDS-2 [id number] Capsule 1 tab PO BID RF: 0 aspirin 81 mg Tablet,Delayed Release (Dr/Ec) 81 mg PO QAM 21 Days Qty: 21 RF: 0 Changed metformin 500 mg Tablet Extended Release 24 Hr 1,000 mg PO QAM Qty: 0 RF: 0 Discontinued chlorthalidone 25 mg Tablet 12.5 mg PO QAM PRN (Reason: swelling) RF: 0 Discharge Orders: Discharge Order (Routine); Ordered 11/03/19 Ordered By: Keisha Rodney/Other Patient Handouts: Hyperglycemia, Hypoglycemia, Diabetes Manage A1C Test Admission Data Admit Date/Time: 10/29/19 16:10 Attending Provider: Keisha Scruggs Admit Provider: Alfa Santillan Primary Care Provider: Alfa Carrillo Other Providers: [place] ; [facility] ; [facility] ; Alfa Santillan ; Forrest Garcia Coding Level of Care Code D/C Day Management >30 mins Diagnoses Acute ischemic multifocal multiple vascular territories stroke I63.89 Type 2 diabetes mellitus E11.9 Coronary artery disease I25.10 History of CVA (cerebrovascular accident) Z86.73 Hypertension I10 Bifascicular block I45.2 CKD (chronic kidney disease), stage III N18.3 Carotid artery stenosis I65.29 Vertebral artery stenosis I65.09 History of aortic valve replacement Z95.2 DVT prophylaxis Z29.9
== END 2019-11-03 14:25 | DRG 65 ==
LOC: ED 11:17 → SUATTDRO 16:10 → 2S 16:10 → 2W 10-31 14:38